=== PATIENT | male | born 1950 | race Caucasian/White ===

== ENCOUNTER → 2018-07-05 15:59 | Outpatient (CLI) | payer BC, SELFPAY ==
[2018-07-05 17:30] LABS: PSA,Total- Diagnostic 4.97 ng/mL (0.0-4.0)
== END ==
PROVIDERS: Family Provider Family Medicine; PCP Family Medicine; Referring Provider Nurse Practitioner Adult Health; Visit Provider Nurse Practitioner Adult Health
DX: R97.20 Elevated prostate specific antigen [PSA] (principal)
CPT/HCPCS: 36415; 84153

== ENCOUNTER → 2019-08-16 09:50 | Outpatient (CLI) | payer BC, SELFPAY ==
[2019-08-16 10:49] LABS: Anion Gap 5 (5-15); BUN 17 mg/dL (7-18); BUN/Creat Ratio 16.3 RATIO (10-20); Calcium,Total 9.1 mg/dL (8.5-10.1); Chloride 104 mmol/L (98-107); Cholesterol 224 mg/dL (200); Creatinine, Serum 1.04 mg/dL (0.70-1.30); EST Glomerular Filtration Rate 76 mL/min (>60); Est Glom Filt Rate - Afr Amer 92 mL/min (>60); Glucose 97 mg/dL (74-106); High Density Lipoprotein 39 mg/dL; PSA,Total - Annual Screen 4.46 ng/mL (0.00-4.00); Potassium 3.7 mmol/L (3.5-5.1); Sodium Level 138 mmol/L (136-145); Triglycerides 203 mg/dL; Very Low Density Lipoprotein 41 mg/dL (5-40)
== END ==
PROVIDERS: Family Provider Family Medicine; PCP Family Medicine; Referring Provider Nurse Practitioner Adult Health; Visit Provider Nurse Practitioner Adult Health
DX: I10 Essential (primary) hypertension (principal); Z12.5 Encounter for screening for malignant neoplasm of prostate
CPT/HCPCS: 36415; 80048; 80061; 84153; G0103

== ENCOUNTER → 2020-04-02 | Outpatient (CLI) | payer BC, MEDICARE, SELFPAY ==
[2016-08-08 09:44] VITALS: BMI 26.9
--- NOTE | 2020-04-02 07:51 | EKG12_ITS ---
Test Reason : PRE-OP Blood Pressure : / mmHG Vent. Rate : 086 BPM Atrial Rate : 086 BPM P-R Int : 150 ms QRS Dur : 100 ms QT Int : 360 ms P-R-T Axes : 067 061 044 degrees QTc Int : 430 ms Normal sinus rhythm Normal ECG Confirmed by DANIELLE ROGERS, NADER ([id number]), production editor MATT CLAIRE ([id number]) on 04/03/2020 10:16:54 AM Referred By: Talia Johnson Confirmed By:NADER SANTOS MD
[2020-04-02 08:02] LABS: Absolute Neutrophil Count 7.7 X10^3/uL (2.0-7.7); Basophil# 0.04 X10^3/uL; Basophil% 0.4 % (0-1); Eosinophil# 0.07 X10^3/uL; Eosinophils% 0.7 % (0-5); Hematocrit 45.8 % (40-54); Hemoglobin 14.8 g/dL (13.0-16.5); Mean Corp Hgb Conc 32.3 g/dL (32-36); Mean Corpuscular Hgb 28.5 pg (27.0-32.0); Mean Corpuscular Volume 88.2 fL (80-94); Mean Platelet Vol. 8.3 fl (6.2-12.0); Monocyte% 8.5 % (0-10); NRBC Flagged by Analyzer 0 % (0-5); Neutrophil # 7.72 X10^3/uL (2.7-7.7); Neutrophil % 73.1 % (47-70); Platelet Count 232 K/mm3 (150-450); RBC Distribution Width CV 12.8 % (11.6-14.6); RBC Distribution Width SD 41.5 fl (35.1-43.9); Red Blood Count 5.19 M/mm3 (4.6-6.2); White Blood Count 10.6 K/mm3 (4.4-11.0)
[2020-04-02 08:32] LABS: Anion Gap 5 (5-15); BUN 17 mg/dL (7-18); BUN/Creat Ratio 16.3 RATIO (10-20); Calcium,Total 8.5 mg/dL (8.5-10.1); Chloride 107 mmol/L (98-107); Creatinine, Serum 1.04 mg/dL (0.70-1.30); EST Glomerular Filtration Rate 76 mL/min (>60); Est Glom Filt Rate - Afr Amer 91 mL/min (>60); Glucose 140 mg/dL (74-106); Potassium 3.6 mmol/L (3.5-5.1); Sodium Level 138 mmol/L (136-145)
== END | disposition home or self-care (01) ==
LOC: LAB 07:40
PROVIDERS: PCP Family Medicine; Referring Provider Registered Nurse; Visit Provider Registered Nurse
DX: Z01.818 Encounter for other preprocedural examination (principal)
CPT/HCPCS: 36415; 80048; 85025; 93005

== ENCOUNTER → 2020-04-25 | Outpatient (CLI) | payer BC, MEDICARE, SELFPAY | END | disposition home or self-care (01) | LOC: MTDU 10:30 | PROVIDERS: PCP Family Medicine; Referring Provider Orthopaedic Surgery; Visit Provider Orthopaedic Surgery | DX: Z11.59 Encounter for screening for other viral diseases (principal) | CPT/HCPCS: 87635; 94799; U0003 ==

== ENCOUNTER 2020-12-03 11:51 | Outpatient (RCR) | payer MEDICARE, SELFPAY ==
[2016-08-08 09:44] VITALS: BMI 26.9
[2020-12-03] MEDS: COVID-19 VACC, MRNA(PFIZER)/PF 30 MCG/0.3 ML SYRINGE IM (08:40)
[2020-12-24] MEDS: COVID-19 VACC, MRNA(PFIZER)/PF 30 MCG/0.3 ML SYRINGE IM (08:28)
== END 2021-03-04 23:59 ==
LOC: IMMUN 11:51
PROVIDERS: PCP Family Medicine; Referring Provider Family Medicine; Visit Provider Family Medicine
DX: Z23 Encounter for immunization (principal)
CPT/HCPCS: 0001A; 0002A; 91300

== ENCOUNTER 2021-11-26 17:02 | Outpatient (CLI) | payer MEDICARE, OTHER, SELFPAY ==
--- NOTE | 2021-11-26 17:06 | RAD_ITS ---
STUDY: X-RAY CHEST REASON FOR EXAM: Male, 71 years old. Cough. TECHNIQUE: Frontal and lateral views of the chest on 3 images. COMPARISON: 08/08/2016. FINDINGS: The lungs are clear and expanded. There is no demonstrated pleural abnormality. Normal size heart. Normal mediastinum and margaret. Normal visualized pulmonary arteries. Normal visualized aortic arch and descending thoracic aorta. Normal visualized thoracic spine. Normal visualized ribs, clavicles, and shoulders. There is no demonstrated abnormality of the visualized soft tissue structures of the upper abdomen. RAD/Chest PA and Lateral IMPRESSION: No interval change. No active or acute cardiopulmonary disease. Electronically Signed: Elkin Grijalva MD at 10:00 EST ,
== END 2021-11-26 23:59 | disposition home or self-care (01) ==
LOC: MTRAD 17:05
PROVIDERS: PCP Family Medicine; Referring Provider Family Medicine; Visit Provider Family Medicine
DX: R05.9 Cough, unspecified (principal)
CPT/HCPCS: 71046

== ENCOUNTER → 2022-12-22 | Outpatient (CLI) | payer MEDICARE, OTHER, SELFPAY ==
[2022-12-22 17:01] LABS: AST(SGOT) 25 U/L (15-37); Alanine Aminotransfer ALT/SGPT 30 U/L (16-61); Anion Gap 8 (5-15); BUN 18 mg/dL (7-18); BUN/Creat Ratio 17.3 RATIO (10-20); Chloride 106 mmol/L (98-107); Cholesterol 120 mg/dL (200); Creatinine, Serum 1.04 mg/dL (0.70-1.30); EST Glomerular Filtration Rate 75 mL/min (>60); Est Glom Filt Rate - Afr Amer 91 mL/min (>60); Glucose 81 mg/dL (74-106); High Density Lipoprotein 36 mg/dL; PSA,Total - Annual Screen 5.61 ng/mL (0.00-4.00); Sodium Level 139 mmol/L (136-145); Triglycerides 153 mg/dL; Very Low Density Lipoprotein 31 mg/dL (5-40)
== END | disposition home or self-care (01) ==
LOC: MFPLAB 12:16
PROVIDERS: PCP Family Medicine; Referring Provider Family Medicine; Visit Provider Family Medicine
DX: Z00.00 Encounter for general adult medical examination without abnormal findings (principal); E78.5 Hyperlipidemia, unspecified; I10 Essential (primary) hypertension; Z12.5 Encounter for screening for malignant neoplasm of prostate
CPT/HCPCS: 36415; 80048; 80061; 84153; 84450; 84460; G0103

== ENCOUNTER → 2023-10-01 | Outpatient (CLI) | payer MEDICARE, OTHER, SELFPAY ==
[2023-10-01 13:23] LABS: AST(SGOT) 18 U/L (15-37); Alanine Aminotransfer ALT/SGPT 27 U/L (16-61); Anion Gap 3 (5-15); BUN 18 mg/dL (7-18); BUN/Creat Ratio 16.2 RATIO (10-20); Calcium,Total 9.3 mg/dL (8.5-10.1); Chloride 108 mmol/L (98-107); Cholesterol 128 mg/dL (200); Creatinine, Serum 1.11 mg/dL (0.70-1.30); EST Glomerular Filtration Rate 69 mL/min (>60); Est Glom Filt Rate - Afr Amer 84 mL/min (>60); Glucose 93 mg/dL (74-106); High Density Lipoprotein 44 mg/dL; Potassium 4.1 mmol/L (3.5-5.1); Sodium Level 139 mmol/L (136-145); Triglycerides 80 mg/dL; Very Low Density Lipoprotein 16 mg/dL (5-40)
== END | disposition home or self-care (01) ==
LOC: MFPLAB 10:22
PROVIDERS: PCP Family Medicine; Visit Provider Family Medicine
DX: I10 Essential (primary) hypertension (principal); E78.5 Hyperlipidemia, unspecified
CPT/HCPCS: 36415; 80048; 80061; 82043; 82570; 84450; 84460

== ENCOUNTER → 2023-11-04 | Outpatient (CLI) | payer MEDICARE, OTHER, SELFPAY ==
[2023-11-04 10:19] LABS: PSA,Total - Annual Screen 6.06 ng/mL (0.00-4.00)
[2023-11-05 13:07] LABS: PSA, Free 0.92 ng/mL; PSA, Free % 17.4 % (.)
== END | disposition home or self-care (01) ==
LOC: LAB 09:23
PROVIDERS: PCP Family Medicine; Referring Provider Urology; Visit Provider Urology
DX: N40.1 Benign prostatic hyperplasia with lower urinary tract symptoms (principal)
CPT/HCPCS: 36415; 84153; 84154; G0103

== ENCOUNTER → 2024-11-07 | Outpatient (CLI) | payer MEDICARE, OTHER, SELFPAY ==
[2024-11-08 04:46] LABS: AST(SGOT) 27 U/L (15-37); Alanine Aminotransfer ALT/SGPT 27 U/L (16-61); Anion Gap 8 (5-15); BUN 17 mg/dL (7-18); Chloride 104 mmol/L (98-107); Cholesterol 131 mg/dL (200); Creatinine, Serum 1.06 mg/dL (0.70-1.30); EST Glomerular Filtration Rate 73 mL/min (>60); Est Glom Filt Rate - Afr Amer 88 mL/min (>60); Glucose 83 mg/dL (74-106); High Density Lipoprotein 47 mg/dL; Potassium 3.7 mmol/L (3.5-5.1); Sodium Level 139 mmol/L (136-145); Triglycerides 49 mg/dL; Very Low Density Lipoprotein 10 mg/dL (5-40)
== END | disposition home or self-care (01) ==
LOC: MFPLAB 14:22
PROVIDERS: PCP Family Medicine; Referring Provider Family Medicine; Visit Provider Family Medicine
DX: E78.5 Hyperlipidemia, unspecified (principal); I10 Essential (primary) hypertension
CPT/HCPCS: 36415; 80048; 80061; 84443; 84450; 84460

== ENCOUNTER → 2025-05-15 | Outpatient (CLI) | payer MEDICARE, OTHER, SELFPAY ==
--- OUTSIDE RECORDS SUMMARY | 2025-05-15 10:27 | XMS RPT_ITS | CCD ---
Author Organization [facility] Inform ion Partnership [facility] Care Team Providers Care Senior Etl Developer Name Role Phone Janette Church Referring Unavailable Janette Church Attending Unavailable Janette Church Primary Care Unavailable Medications Current Medications Medication Drug Class(es) Dates Sig (Normalized) Sig (Original) doxazosin 1 mg oral tablet (2 sources) alpha-Adrenergic Manuel Start: 08-08-2016 take 1 mg by mouth at bedtime Doxazosin Active 1 MG PO AT BEDTIME August 08, 2016 12:00am sildenafil 20 mg oral tablet (2 sources) Phosphodiesterase 5 Inhibitor Start: 08-08-2016 take 20 mg by mouth every week Sildenafil (Pulm.Hypertensi on) Active 20 MG PO EVERY WEEK August 08, 2016 12:00am Problems Problem Classification Problem Date Documented Da te Episodic/Chronic Disorders of lipid metabolism (1 source) Hyperlipidemia, unspecified; Translations: [Hyperlipidemia, unspecified] Onset: 11-21-2024 Chronic Results Test Name Value Interpretation Reference Range Facility AST(SGOT)on 11-08-2024 AST [Catalytic activity/Vol] 27 U/L Normal 15-37 [facility] Comment on above: Performed By: #### L 501.4405, L500.2500, L501.4100, L500.4100, L501.9520 #### [facility] [address] [place], [address] Alanine Aminotransferas (SGP T)on 11-08-2024 ALT [Catalytic activity/Vol] 27 U/L Normal 16-61 [facility] Comment on above: Performed By: #### L 501.4405, L500.2500, L501.4100, L500.4100, L501.9520 #### [facility] [address] [place], [address] Basic Metabolic Profile (BMP )on 11-08-2024 BUN/CRE 16.0 RATIO Normal 10-20 [facility] Comment on above: Performed By: #### L 501.4405, L500.2500, L501.4100, L500.4100, L501.9520 #### [facility] [address] [place], [address] CA,Total 9.0 mg/dL Normal 8.5-10.1 [facility] Comment on above: Performed By: #### L 501.4405, L500.2500, L501.4100, L500.4100, L501.9520 #### [facility] [address] [place], [address] Chloride [Moles/Vol] 104 mmol/L Normal 98-[address] [facility] Comment on above: Performed By: #### L 501.4405, L500.2500, L501.4100, L500.4100, L501.9520 #### [facility] [address] [place], [address] CO2 [Moles/Vol] 27.0 mmol/L Normal 21.0-32.0 [facility] Comment on above: Performed By: #### L 501.4405, L500.2500, L501.4100, L500.4100, L501.9520 #### [facility] [address] [place], [address] Creatinine [Mass/Vol] 1.06 mg/dL Normal 0.70-1.30 [facility] Comment on above: Result Comment: The validity of the calculated GFR GFRAA in patients over 70 years has not been determined. Clinical correlation is essential. Performed By: #### L 501.4405, L500.2500, L501.4100, L500.4100, L501.9520 #### [facility] [address] [place], [address] EST GFR - AA 88 mL/min Normal >60 [facility] Comment on above: Result Comment: Afri can Russian GFR Calc Performed By: #### L 501.4405, L500.2500, L501.4100, L500.4100, L501.9520 #### [facility] [address] [place], [address] GAP 8 Normal 5-15 [facility] Comment on above: Performed By: #### L 501.4405, L500.2500, L501.4100, L500.4100, L501.9520 #### [facility] [address] [place], [address] GFR/1.73 sq M.predicted among non-blacks MDRD (S/P/Bld) [Vol rate/Area] 73 mL/min/{1.73_m2} Normal >60 [facility] Comment on above: Result Comment: Non- GFR Calc Performed By: #### L 501.4405, L500.2500, L501.4100, L500.4100, L501.9520 #### [facility] [address] [place], [address] Glucose [Mass/Vol] 83 mg/dL Normal 74-106 [facility] Comment on above: Performed By: #### L 501.4405, L500.2500, L501.4100, L500.4100, L501.9520 #### [facility] [address] [place], [address] Potassium [Moles/Vol] 3.7 mmol/L Normal 3.5-5.1 [facility] Comment on above: Performed By: #### L 501.4405, L500.2500, L501.4100, L500.4100, L501.9520 #### [facility] [address] [place], [address] Sodium [Moles/Vol] 139 mmol/L Normal 136-145 [facility] Comment on above: Performed By: #### L 501.4405, L500.2500, L501.4100, L500.4100, L501.9520 #### [facility] [address] [place], [address] Urea nitrogen [Mass/Vol] 17 mg/dL Normal 7-18 [facility] Comment on above: Performed By: #### L 501.4405, L500.2500, L501.4100, L500.4100, L501.9520 #### [facility] [address] [place], [address] Lipid Profileon 11-08-2024 Cholesterol [Mass/Vol] 131 mg/dL Normal [address] [facility] Comment on above: Result Comment: <200 mg/dL Desirable 200-240 mg/dL Borderline >240 mg/dL High Risk Performed By: #### L 501.4405, L500.2500, L501.4100, L500.4100, L501.9520 #### [facility] [address] [place], [address] Cholesterol in HDL [Mass/Vol] 47 mg/dL Normal [facility] Comment on above: Result Comment: The drugs N-Acetylcysteine and Metamizole may falsely depress this assay. Reference Range HDL <40 mg/dL Low HDL Cholesterol HDL >or= 60 mg/dL High HDL Cholesterol Performed By: #### L 501.4405, L500.2500, L501.4100, L500.4100, L501.9520 #### [facility] [address] [place], [address] Cholesterol in LDL [Mass/Vol] 74 mg/dL Normal 0-130 [facility] Comment on above: Performed By: #### L 501.4405, L500.2500, L501.4100, L500.4100, L501.9520 #### [facility] [address] [place], [address] Cholesterol in VLDL [Mass/Vol] 10 mg/dL Normal 5-40 [facility] Comment on above: Performed By: #### L 501.4405, L500.2500, L501.4100, L500.4100, L501.9520 #### [facility] [address] [place], [address] Triglyceride [Mass/Vol] 49 mg/dL Normal [facility] Comment on above: Result Comment: The drugs N-Acetylcysteine and Metamizole may falsely depress this assay. Serum Triglycerides Reference Interval Normal <150 mg/dL Borderline high 150 - 199 mg/dL High 200 - 499 mg/dL Very High > or = 500 mg/dL Performed By: #### L 501.4405, L500.2500, L501.4100, L500.4100, L501.9520 #### [facility] [address] [place], [address] Thyroid Stim Hormone (TSH)on 11-08-2024 TSH 2.990 uIU/mL Normal 0.358-3.740 [facility] Comment on above: Performed By: #### L 501.4405, L500.2500, L501.4100, L500.4100, L501.9520 #### [facility] [address] [place], [address] No Panel InformationOrdered By: Benjamin Colon on 11-04-2023 Percent Free Prostate Specific Ag 0.92 ng/mL N/A [facility] Comment on above: [place] ECLIA methodol ogy. Prostate Specific Ag, Ultra-Sensitv 5.280 ng/mL 0.000-4.000 [facility] Comment on above: [place] ECLIA methodol ogy.According to the [place] [employer], Serum PSAshould decrease and remain at undetectable levels afterradical prostatectomy. The AUA defines biochemicalrecurrence as an initial PSA value 0.200 ng/mL or greaterfollowed by a subsequent confirmatory PSA value 0.200 ng/mLor greater. Values obtained with different assay methods orkits cannot be used interchangeably. Results cannot beinterpreted as absolute evidence of the presence or absenceof malignant disease. Prostate Specific Antigen Screen 6.06 ng/mL 0.00-4.00 [facility] Comment on above: This test was perfor med using the TPSA assay method for theMintigo chemistry system. Values obtained with differentassay methods cannot be used interchangably.When changing PSA assays in the course of monitoring apatient, additional sequential testing should be carriedout to confirm baseline values. Serum or plasma free prostat e specific antigen/total prostate specific antigen ratioOrdered By: Benjamin Colon on 11-04-2023 Free PSA/Total PSA [Mass fraction] 17.4 % . [facility] Comment on above: The table below list s the probability of prostate cancer formen with non-suspicious BETTE results and total PSA between4 and 10 ng/mL, by patient age (Lindsay et al, NEEMA 1998,279:1542). % Free PSA 50-64 yr 65-75 yr 0.00-10.00% 56% 55% 10.01-15.00% 24% 35% 15.01-20.00% 17% 23% 20.01-25.00% 10% 20% >25.00% 5% 9%Please note: Lindsay et al did not make specific recommendations regarding the use of percent free PSA for any other population of men.Performed at: [facility] [id number] Director: Jimmy Dinero PhD, Phone: [phone] Basophil percentageOrdered B y: Janette Church on 10-01-2023 Chloride [Moles/Vol] 108 mmol/L 98-[address] [facility] Cholesterol [Mass/Vol] 128 mg/dL <[address] [facility] Comment on above: <200 mg/dL Desirable 200-240 mg/dL Borderline >240 mg/dL High Risk Glucose [Mass/Vol] 93 mg/dL 74-106 [facility] Potassium [Moles/Vol] 4.1 mmol/L 3.5-5.1 [facility] Sodium [Moles/Vol] 139 mmol/L 136-145 [facility] Triglyceride [Mass/Vol] 80 mg/dL <199 [facility] Comment on above: The drugs N-Acetylcy steine and Metamizole may falsely depress this assay.Serum Triglycerides Reference Interval Normal <150 mg/dL Borderline high 150 - 199 mg/dL High 200 - 499 mg/dL Very High > or = 500 mg/dL Laboratory - Chemistry and C hemistry - challengeOrdered By: Janette Church on 10-01-2023 ALT [Catalytic activity/Vol] 27 U/L 16-61 [facility] CO2 [Moles/Vol] 28.0 mmol/L 21.0-32.0 [facility] Urea nitrogen/Creatinine [Mass ratio] 16.2 mg/mg 10-20 [facility] No Panel InformationOrdered By: Janette Church on 10-01-2023 Estimated GFR (MDRD) Amer 84 mL/min >60 [facility] Comment on above: GFR Calc Estimated GFR (MDRD) Non-Af Amer 69 mL/min >60 [facility] Comment on above: Non- GFR Calc Urine Microalbumin/Creatinin e Ratio 15.0 mg/g CRE <30 [facility] Serum or plasma calcium maximilian urement (mass/volume)Ordered By: Janette Church on 10-01-2023 Calcium [Mass/Vol] 9.3 mg/dL 8.5-10.1 [facility] Serum or plasma cholesterol in HDL measurement (mass/volume)Ordered By: Janette Church on 10-01-2023 Cholesterol in HDL [Mass/Vol] 44 mg/dL >40 [facility] Comment on above: The drugs N-Acetylcy steine and Metamizole may falsely depress this assay. Reference Range HDL <40 mg/dL Low HDL Cholesterol HDL >or= 60 mg/dL High HDL Cholesterol Serum or plasma cholesterol in VLDL measurement (mass/volume)Ordered By: Janette Church on 10-01-2023 Cholesterol in VLDL [Mass/Vol] 16 mg/dL 5-40 [facility] Serum or plasma creatinine m easurement (mass/volume)Ordered By: Janette Church on 10-01-2023 Creatinine [Mass/Vol] 1.11 mg/dL 0.70-1.30 [facility] Comment on above: The validity of the calculated GFR & GFRAA in patients over 70 years has not been determined. Clinical correlation is essential. Serum or plasma low density lipoprotein (LDL) cholesterol measurement (mass/volume)Ordered By: Janette Church on 10-01-2023 Cholesterol in LDL [Mass/Vol] 68 mg/dL 0-130 [facility] Serum or plasma urea nitroge n measurement (mass/volume)Ordered By: Janette Church on 10-01-2023 Urea nitrogen [Mass/Vol] 18 mg/dL 7-18 [facility] Thin prep Papanicolaou smear with manual screeningOrdered By: Janette Church on 10-01-2023 Thin prep Papanicolaou smear with manual screening 18 U/L 15-37 [facility] Thin prep Papanicolaou smear with manual screening 3 5-15 [facility] Thin prep Papanicolaou smear with manual screening 44.0 mg/L NO RANGE EST. [facility] Urine creatinine measurement (mass/volume)Ordered By: Janette Church on 10-01-2023 Creatinine (U) [Mass/Vol] 294.00 mg/dL NO RANGE EST. [facility] CNOVon 11-17-2021 CNOV Office Visit (UCWSTR ) -------- ELEAZAR ROSALES ([id number]) 1950 M Date Time Provider Department 11/17/21 9:30 AM RAE POSADAS [facility] During your visit today, we recorded the following information about you: Temperature Pulse Respiration Blood pressure 96.3 degrees 88/minute 18/minute 130/90 Weight 93.4 kg Rae Posadas APRN.CNP 11/17/2021 9:35 AM Signed ASSESSMENT/PLAN: 1. Acute sinusitis, recurrence not specified, unspecified location - ICD9: 461.9, ICD10: J01.90 (primary diagnosis) - Will begin treatment with Augmentin 875 mg PO BID for 7 days - Supportive care with plenty of fluids, rest, and analgesia prn. - AMOXICILLIN 875 MG-POTASSIUM CLAVULANATE 125 MG TABLET - also recommend over the counter Flonase and cepacol lozenges. 2. Post-nasal drainage - ICD9: 473.9, ICD10: R09.82 - Follow-up with your PCP in 3-5 days if symptoms have not improved or sooner if symptoms worsen - Discussed red flags and need for immediate medical evaluation if any occur. - Discussed supportive care treatment with fluids, rest and analgesia. - Discussed expected course of illness Rae Posadas APRN.MAURY Adult Sinusitis Patient Education What is Sinusitis? Sinusitis [umdw-uqz-skkq-tis] is inflammation of the sinuses or swelling of the lining of the sinus cavity or nose. During an infection the sinuses become blocked with fluid causing swelling of the lining of the sinuses. Symptoms: (viral and bacterial infections) Stuffy nose Runny nose Postnasal drip Fever Toothache Headache Tiredness Cough Sore throat Face and head pressure and or pain Common causes: 98% of sinus infections are viral caused by viruses. Risk Factors of Sinusitis Include: Allergies, air pollution, indoor humidity and outdoor temperature changes, andstructural changes in the nose may contribute to sinus pain, pressure and congestion. When to get help? Temperature greater than 100.4 ?F Symptoms lasting more than 10 days or worsening symptoms greater than 7-10 days. If you do not improve or worsen after a course of antibiotics, you should be re-examined. Diagnosis and Treatment: Your healthcare provider will ask a number of questions about your symptoms and how long they have occurred. If symptoms of sinusitis persist greater than 10 days, it is possible you have a bacterial sinus infection and an antibiotic is prescribed. If it is viral, antibiotics will not help. You may be instructed to take zmtx-oig-vcquhuf medications for symptoms. including fever reducers acetaminophen or ibuprofen, nasal saline spray, cough and cold preparations and decongestants as prescribed by the physician, nurse practitioner or physician rehabilitation assistant. Self-Care and Prevention: Rest Fluids for hydration Good hand washing Humidifier Avoid smoking and exposure to second hand smoke Avoid sick contacts Rae Posadas APRN.MAURY 11/17/2021 9:46 AM Signed Subjective HPI Eleazar Rosales is a 71 year old male who presents with 3 weeks of sore throat, sinus congestion and cough. He has had two COVID tests which were both negative. He has not taken any medication for this problem. He denies fever, chills, body aches. He notes a change in his voice over the past few days and frequent throat clearing due to congestion. Review of Systems Constitutional: Negative for chills and fever. HENT: Positive for congestion and sore throat. Negative for ear pain. Respiratory: Positive for cough. Negative for shortness of breath. Cardiovascular: Negative for chest pain. Musculoskeletal: Negative for myalgias. BP 130/90 Pulse 88 Temp (!) 35.7 ?C (96.3 ?F) Resp 18 Wt 93.4 kg (205 lb 12.8 oz) SpO2 96% PAST MEDICAL HISTORY Diagnosis Date - Hypertrophy of prostate without urinary obstruction and other lower urinary tract symptoms (LUTS) - Inguinal hernia without mention of obstruction or gangrene, unilateral or unspecified, (not specified as recurrent) left PAST SURGICAL HISTORY Procedure Laterality Date - LAPAROSCOPY SURG RPR INITIAL INGUINAL HERNIA [facility] - PAST SURGICAL HISTORY OF [facility] ALLERGIES Patient has no known allergies. MEDICATIONS amLODIPine (NORVASC) 5 mg tablet Take 5 mg by mouth daily at bedtime. atorvastatin (LIPITOR) 20 mg tablet Take 20 mg by mouth daily at bedtime. amoxicillin-clavulanic acid (AUGMENTIN) 875-125 mg per tablet Take 1 tablet by mouth twice daily for 7 days. gabapentin(NEURONTIN 300 MG CAP) Take one(1) capsule three(3) times daily. gabapentin(NEURONTIN 100 MG CAP) take two (2) capsules BID for one week, then start on the 300mg capsules as directed gabapentin(NEURONTIN 100 MG CAP) Take one (1)capsule TID for one(1)week, then take two(2) capsules TID beginning the second week. tamsulosin hcl(FLOMAX 0.4 MG 24 HR CAP) Take one(1) tablet at bedtime. FAMILY HISTORY Problem Relatio (more content not included)... Normal [facility] Encounters Encounter Date Encounter Type Care Provider Facility Start: 11-07-2024 End: 11-07-2024 ambulatory Janette Church Facility:[facility] Start: 11-04-2023 End: 11-04-2023 ambulatory [facility] Work Phone: Start: 11-04-2023 End: 11-04-2023 Patient encounter procedure [facility] Work Phone: Start: 10-01-2023 End: 10-01-2023 ambulatory [facility] Work Phone: Start: 10-01-2023 End: 10-01-2023 Patient encounter procedure [facility] Immunizations Immunization Date Immunization Notes Care Provider Fa cility 12-24-2020 Covid (Pfizer) [facility] 12-03-2020 Covid (Pfizer) [facility] Payers Date Payer Category Payer Medicare [id number] 2024 Self-pay [id number] Unknown [id number] Unknown PALAK [id number] Unknown [id number] Social History Date Type Detail Facility Start: 08-08-2016 Tobacco smoking stat [facility] Unknown if ever smoked [facility] Start: 1950 Sex Assigned At Male [facility] Progress note 11-17-2021 Note Date & Type Note Facility 11-17-2021 Note HNO ID: [id number] Author: Rae Posadas APRN.SSN/SSBN ASSISTANT NAVIGATOR Service: ? Author Type: Nurse Practitioner Type: Progress Notes Filed: 11/17/2021 9:46 AM Note Text: Subjective HPI Eleazar Rosales is a 71 year old male who presents with 3 weeks of sore throat, sinus congestion and cough. He has had two COVID tests which were both negative. He has not taken any medication for this problem. He denies fever, chills, body aches. He notes a change in his voice over the past few days and frequent throat clearing due to congestion. Review of Systems Constitutional: Negative for chills and fever. HENT: Positive for congestion and sore throat. Negative for ear pain. Respiratory: Positive for cough. Negative for shortness of breath. Cardiovascular: Negative for chest pain. Musculoskeletal: Negative for myalgias. BP 130/90 Pulse 88 Temp (!) 35.7 ?C (96.3 ?F) Resp 18 Wt 93.4 kg (205 lb 12.8 oz) SpO2 96% PAST MEDICAL HISTORY Diagnosis Date - Hypertrophy of prostate without urinary obstruction and other lower urinary tract symptoms (LUTS) - Inguinal hernia without mention of obstruction or gangrene, unilateral or unspecified, (not specified as recurrent) left PAST SURGICAL HISTORY Procedure Laterality Date - LAPAROSCOPY SURG RPR INITIAL INGUINAL HERNIA [facility] - PAST SURGICAL HISTORY OF [facility] ALLERGIES Patient has no known allergies. MEDICATIONS amLODIPine (NORVASC) 5 mg tablet Take 5 mg by mouth daily at bedtime. atorvastatin (LIPITOR) 20 mg tablet Take 20 mg by mouth daily at bedtime. amoxicillin-clavulanic acid (AUGMENTIN) 875-125 mg per tablet Take 1 tablet by mouth twice daily for 7 days. gabapentin(NEURONTIN 300 MG CAP) Take one(1) capsule three(3) times daily. gabapentin(NEURONTIN 100 MG CAP) take two (2) capsules BID for one week, then start on the 300mg capsules as directed gabapentin(NEURONTIN 100 MG CAP) Take one (1)capsule TID for one(1)week, then take two(2) capsules TID beginning the second week. tamsulosin hcl(FLOMAX 0.4 MG 24 HR CAP) Take one(1) tablet at bedtime. FAMILY HISTORY Problem Relation Age of Onset - Arthritis Maternal Grandmother - Arthritis Maternal Grandfather - Alzheimer's Disease Maternal Aunt - Alzheimer's Disease Maternal Aunt Social History Tobacco Use - Smoking status: Never Smoker - Smokeless tobacco: Never Used Substance Use Topics - Alcohol use: Yes Comment: rare - Drug use: No Objective Physical Exam Vitals and nursing note reviewed. HENT: Right Ear: Tympanic membrane, ear canal and external ear normal. Left Ear: Tympanic membrane, ear canal and external ear normal. Nose: Nasal tenderness and congestion present. Mouth/Throat: Mouth: Mucous membranes are moist. Pharynx: Oropharynx is clear. Uvula midline. No oropharyngeal exudate or posterior oropharyngeal erythema. Cardiovascular: Rate and Rhythm: Normal rate and regular rhythm. Heart sounds: Normal heart sounds. Pulmonary: Effort: Pulmonary effort is normal. No respiratory distress. Breath sounds: Normal breath sounds. No wheezing or rales. Musculoskeletal: Cervical back: Neck supple. Lymphadenopathy: Cervical: No cervical adenopathy. Skin: General: Skin is warm and dry. Findings: No erythema or rash. Neurological: Mental Status: He is alert. ASSESSMENT/PLAN: 1. Acute sinusitis, recurrence not specified, unspecified location - ICD9: 461.9, ICD10: J01.90 (primary diagnosis) - Will begin treatment with Augmentin 875 mg PO BID for 7 days - Supportive care with plenty of fluids, rest, and analgesia prn. - AMOXICILLIN 875 MG-POTASSIUM CLAVULANATE 125 MG TABLET - also recommend over the counter Flonase and cepacol lozenges. 2. Post-nasal drainage - ICD9: 473.9, ICD10: R09.82 - Follow-up with your PCP in 3-5 days if symptoms have not improved or sooner if symptoms worsen - Discussed red flags and need for immediate medical evaluation if any occur. - Discussed supportive care treatment with fluids, rest and analgesia. - Discussed expected course of illness Medical Decision Making: Problems: Moderate: New problem with uncertain prognosis Risk: Low: Low risk from testing/treatment Moderate: Drug management Medical Decision Making Level: 4 - Moderate Rae Posadas APRN.MAURY [facility] Evaluation note Note Date & Type Note Facility Evaluation note No assessment information availa ble [facility] Work Phone: Summary Purpose Family History No Family History Records FoundNo Family History Records Found Advance Directives No Advanced Directives Records FoundNo Advanced Directives Records Found Chief Complaint and Reason for Visit Chief Complaint PSA Additional Source Comments (unrecognized sect ion and content) No Status Records FoundNo Status Records Found INFORMATION SOURCE (unrecogn ized section and content) DATE CREATED AUTHOR 12/18/2021 [facility] DATE CREATED AUTHOR AUTHOR'S MATTY KELLY 11/23/2024 [facility] Care Teams (unrecognized sec tion and content) Team Status: Active Member Role Status Dates Dr. Janette Church MD Family Provider Active Dr. Janette Church MD Primary Care Provider Active Team Status: Inactive Member Role Status Dates Dr. Janette Church MD Primary Care Provider, Attendin g Provider Active Team Status: Inactive Member Role Status Dates Dr. Janette Church MD Primary Care Provider Active Dr. Benjamin Colon MD Attending Provider, Referr ing Provider Active Goals (unrecognized section and content) Goals may be documented in a n alternate sectionGoals may be documented in an alternate section FOR RECORDS PERTAINING TO PATIENTS WHO ARE OR HAVE BEEN ENROLLED IN A CHEMICAL DEPENDENCY/SUBSTANCEABUSE PROGRAM, SOME INFORMATION MAY BE OMITTED. This clinical summary was aggregated from multiple sources. Caution should be exercised in using it in the provision of clinical care. This summary normalizes information from multiple sources, and as a consequence, information in this document may materially change the coding, format and clinical context of patient data. In addition, data may be omitted in some cases. CLINICAL DECISIONS SHOULD BE BASED ON THE PRIMARY CLINICAL RECORDS. [facility] [employer] provides no warranty or guarantee of the accuracy or completeness of information in this document.
[2025-05-15 11:01] LABS: PSA,Total - Annual Screen 5.56 ng/mL (0.02-4.00)
== END | disposition home or self-care (01) ==
LOC: MFPLAB 08:58
DX: Z12.5 Encounter for screening for malignant neoplasm of prostate (principal)
CPT/HCPCS: 36415; 84153; G0103

== ENCOUNTER → 2025-07-31 | Outpatient (CLI) | payer MEDICARE, OTHER, SELFPAY ==
[2025-07-31 15:01] LABS: Hematocrit 41.7 % (40-54); Hemoglobin 14.1 g/dL (13.0-16.5); Mean Corp Hgb Conc 33.8 g/dL (32-36); Mean Corpuscular Volume 87.4 fL (80-94); Mean Platelet Vol. 8.3 fl (6.2-12.0); Platelet Count 269 K/mm3 (150-450); RBC Distribution Width CV 12.8 % (11.6-14.6); RBC Distribution Width SD 40.8 fl (35.1-43.9); Red Blood Count 4.77 M/mm3 (4.6-6.2); White Blood Count 10.1 K/mm3 (4.4-11.0)
[2025-07-31 15:30] LABS: Anion Gap 9 (5-15); BUN 18 mg/dL (4-19); BUN/Creat Ratio 16.6 RATIO (10-20); Calcium,Total 9.1 mg/dL (7.6-11.0); Carbon Dioxide 25.5 mmol/L (21.0-32.0); Chloride 105 mmol/L (98-108); Glucose 92 mg/dL (70-99); Potassium 4.1 mmol/L (3.3-5.1)
--- OUTSIDE RECORDS SUMMARY | 2025-07-31 18:57 | XMS RPT_ITS | CCD ---
Author Organization [facility]iniSyn[facility] Care Team Providers Care Duco Polisher Name Role Phone Janette Church Primary Care Unavailable Janette Church Attending Unavailable Janette Church Referring Unavailable Roseanneorrow AUTO CRANE DRIVERCharles Primary Care Unavailable McMorrow AUTO CRANE DRIVER, Charles Attending Unavailable McMorrow AUTO CRANE DRIVER, Charles Referring [facility]available [facility] Charles Primary Care Provider [phone] McMorrow AUTO CRANE DRIVER-C, Charles Attending Provider [phone] McMorrow AUTO CRANE DRIVER-C, Charles Referring Provider [phone] Medications Current Medications Medication Drug Class(es) Dates Sig (Normalized) Sig (Original) doxazosin 1 mg oral tablet (3 sources) alpha-Adrenergic Manuel Start: 08-08-2016 take 1 tablet by mouth at bedtime Doxazosin 1 MG tablet Active 1 mg PO AT BEDTIME August 08, 2016 1:00am sildenafil 20 mg oral tablet (3 sources) Phosphodiesterase 5 Inhibitor Start: 08-08-2016 take 1 tablet by mouth every week Sildenafil (Pulm.Hypertensi on) 20 MG tablet Active 20 mg PO EVERY WEEK August 08, 2016 1:00am Problems Problem Classification Problem Date Documented Da te Episodic/Chronic Disorders of lipid metabolism (1 source) Hyperlipidemia, unspecified; Translations: [Hyperlipidemia, unspecified] Onset: 11-21-2024 Chronic Other screening for suspected conditions (not mental disorders or infectious disease) (1 source) Encounter for screening for malignant neoplasm of prostate; Translations: [Encounter for screening for malignant neoplasm of prostate] Onset: 05-21-2025 Episodic Results Test Name Value Interpretation Reference Range Facility PSA,Total - Annual Screenon 05-15-2025 PSA,TOT SCREEN 5.56 ng/mL High 0.02-4.00 [facility] Comment on above: Order Comment: Order Date: 05/15/25 Order Info: [id number] - PSA Comments: screening for prostate cancer Result Comment: This test was performed using the [employer] tPSA method. Measured values of a patient??sample can vary depending on the testing procedure used. PSA values determined on patient samples by different testing procedures cannot be used interchangeably. If there is a change in PSA assays while monitoring therapy, sequential testing should be performed to confirm baseline values. Performed By: #### L 501.9910 #### [facility] [address] [place], [address] AST(SGOT)on 11-08-2024 AST [Catalytic activity/Vol] 27 U/L Normal 15-37 [facility] Comment on above: Performed By: #### L 501.4405, L500.2500, L501.4100, L500.4100, L501.9520 #### [facility] [address] [place], [address] Alanine Aminotransferas (SGP T)on 11-08-2024 ALT [Catalytic activity/Vol] 27 U/L Normal 16-61 [facility] Comment on above: Performed By: #### L 501.4405, L500.2500, L501.4100, L500.4100, L501.9520 #### [facility] [address] [place], [address] Basic Metabolic Profile (BMP )on 11-08-2024 BUN/CRE 16.0 RATIO Normal 10-20 [facility] Comment on above: Performed By: #### L 501.4405, L500.2500, L501.4100, L500.4100, L501.9520 #### [facility] [address] [place], [address] CA,Total 9.0 mg/dL Normal 8.5-10.1 [facility] Comment on above: Performed By: #### L 501.4405, L500.2500, L501.4100, L500.4100, L501.9520 #### [facility] [address] [place], [address] Chloride [Moles/Vol] 104 mmol/L Normal 98-107 [facility] Comment on above: Performed By: #### L 501.4405, L500.2500, L501.4100, L500.4100, L501.9520 #### [facility] [address] [place], [address] CO2 [Moles/Vol] 27.0 mmol/L Normal 21.0-32.0 [facility] Comment on above: Performed By: #### L 501.4405, L500.2500, L501.4100, L500.4100, L501.9520 #### [facility] [address] [place], [address] Creatinine [Mass/Vol] 1.06 mg/dL Normal 0.70-1.30 [facility] Comment on above: Result Comment: The validity of the calculated GFR GFRAA in patients over 70 years has not been determined. Clinical correlation is essential. Performed By: #### L 501.4405, L500.2500, L501.4100, L500.4100, L501.9520 #### [facility] [address] [place], [address] EST GFR - AA 88 mL/min Normal >60 [facility] Comment on above: Result Comment: Afri can Citizen Of [place] GFR Calc Performed By: #### L 501.4405, L500.2500, L501.4100, L500.4100, L501.9520 #### [facility] [address] [place], [address] GAP 8 Normal 5-15 [facility] Comment on above: Performed By: #### L 501.4405, L500.2500, L501.4100, L500.4100, L501.9520 #### [facility] [address] [place], [address] GFR/1.73 sq M.predicted among non-blacks MDRD (S/P/Bld) [Vol rate/Area] 73 mL/min/{1.73_m2} Normal >60 [facility] Comment on above: Result Comment: Non- GFR Calc Performed By: #### L 501.4405, L500.2500, L501.4100, L500.4100, L501.9520 #### [facility] [address] [place], [address] Glucose [Mass/Vol] 83 mg/dL Normal 74-106 [facility] Comment on above: Performed By: #### L 501.4405, L500.2500, L501.4100, L500.4100, L501.9520 #### [facility] [address] [place], [address] Potassium [Moles/Vol] 3.7 mmol/L Normal 3.5-5.1 [facility] Comment on above: Performed By: #### L 501.4405, L500.2500, L501.4100, L500.4100, L501.9520 #### [facility] [address] [place], [address] Sodium [Moles/Vol] 139 mmol/L Normal 136-145 [facility] Comment on above: Performed By: #### L 501.4405, L500.2500, L501.4100, L500.4100, L501.9520 #### [facility] [address] [place], [address] Urea nitrogen [Mass/Vol] 17 mg/dL Normal 7-18 [facility] Comment on above: Performed By: #### L 501.4405, L500.2500, L501.4100, L500.4100, L501.9520 #### [facility] [address] [place], [address] Lipid Profileon 11-08-2024 Cholesterol [Mass/Vol] 131 mg/dL Normal 200 [facility] Comment on above: Result Comment: <200 mg/dL Desirable 200-240 mg/dL Borderline >240 mg/dL High Risk Performed By: #### L 501.4405, L500.2500, L501.4100, L500.4100, L501.9520 #### [facility] [address] [place], [address] Cholesterol in HDL [Mass/Vol] 47 mg/dL Normal [facility] Comment on above: Result Comment: The drugs N-Acetylcysteine and Metamizole may falsely depress this assay. Reference Range HDL <40 mg/dL Low HDL Cholesterol HDL >or= 60 mg/dL High HDL Cholesterol Performed By: #### L 501.4405, L500.2500, L501.4100, L500.4100, L501.9520 #### [facility] [address] [place], [address] Cholesterol in LDL [Mass/Vol] 74 mg/dL Normal 0-130 [facility] Comment on above: Performed By: #### L 501.4405, L500.2500, L501.4100, L500.4100, L501.9520 #### [facility] [address] [place], [address] Cholesterol in VLDL [Mass/Vol] 10 mg/dL Normal 5-40 [facility] Comment on above: Performed By: #### L 501.4405, L500.2500, L501.4100, L500.4100, L501.9520 #### [facility] [address] [place], [address] Triglyceride [Mass/Vol] 49 mg/dL Normal [facility] Comment on above: Result Comment: The drugs N-Acetylcysteine and Metamizole may falsely depress this assay. Serum Triglycerides Reference Interval Normal <150 mg/dL Borderline high 150 - 199 mg/dL High 200 - 499 mg/dL Very High > or = 500 mg/dL Performed By: #### L 501.4405, L500.2500, L501.4100, L500.4100, L501.9520 #### [facility] [address] [place], [address] Thyroid Stim Hormone (TSH)on 11-08-2024 TSH 2.990 uIU/mL Normal 0.358-3.740 [facility] Comment on above: Performed By: #### L 501.4405, L500.2500, L501.4100, L500.4100, L501.9520 #### [facility] [address] [place], [address] No Panel InformationOrdered By: Benjamin Colon on 11-04-2023 Percent Free Prostate Specific Ag 0.92 ng/mL N/A [facility] Comment on above: [employer] ECLIA methodol ogy. Prostate Specific Ag, Ultra-Sensitv 5.280 ng/mL 0.000-4.000 [facility] Comment on above: [employer] ECLIA methodol ogy.According to the [place] [employer], Serum PSAshould decrease and remain [...] Prostate Specific Antigen Screen 6.06 ng/mL 0.00-4.00 [facility] Comment on above: This test was perfor med using the TPSA assay method for the[facility] chemistry system. Values obtained with differentassay methods cannot be used interchangably.When changing PSA assays in the course of monitoring apatient, additional sequential testing should be carriedout to confirm baseline values. Serum or plasma free prostat e specific antigen/total prostate specific antigen ratioOrdered By: Benjamin Colon on 11-04-2023 Free PSA/Total PSA [Mass fraction] 17.4 % . [facility] Comment on above: The table below [...] for any other population of men.Performed at: [facility] [id number] Director: Jimmy Dinero PhD, Phone: [phone] Basophil percentageOrdered B y: Janette Church on 10-01-2023 Chloride [Moles/Vol] 108 mmol/L 98-107 [facility] Cholesterol [Mass/Vol] 128 mg/dL <200 [facility] Comment on above: <200 mg/dL Desirable 200-240 mg/dL Borderline >240 mg/dL High Risk Glucose [Mass/Vol] 93 mg/dL 74-106 [facility] Potassium [Moles/Vol] 4.1 mmol/L 3.5-5.1 [facility] Sodium [Moles/Vol] 139 mmol/L 136-145 [facility] Triglyceride [Mass/Vol] 80 mg/dL <199 [facility] Comment on above: The drugs N-Acetylcy steine and Metamizole may falsely depress this assay.Serum Triglycerides Reference Interval Normal <150 mg/dL Borderline high 150 - 199 mg/dL High 200 - 499 mg/dL Very High > or = 500 mg/dL Laboratory - Chemistry and C hemistry - challengeOrdered By: Janette Church on 10-01-2023 ALT [Catalytic activity/Vol] 27 U/L 16-61 [facility] CO2 [Moles/Vol] 28.0 mmol/L 21.0-32.0 [facility] Urea nitrogen/Creatinine [Mass ratio] 16.2 mg/mg 10-20 [facility] No Panel InformationOrdered By: Janette Church on 10-01-2023 Estimated GFR (MDRD) Amer 84 mL/min >60 [facility] Comment on above: GFR Calc Estimated GFR (MDRD) Non-Af Amer 69 mL/min >60 [facility] Comment on above: Non- GFR Calc Urine Microalbumin/Creatinin e Ratio 15.0 mg/g CRE <30 [facility] Serum or plasma calcium maximilian urement (mass/volume)Ordered By: Janette Church on 10-01-2023 Calcium [Mass/Vol] 9.3 mg/dL 8.5-10.1 [facility] Serum or plasma cholesterol in HDL measurement (mass/volume)Ordered By: Janette Church on 10-01-2023 Cholesterol in HDL [Mass/Vol] 44 mg/dL >40 [facility] Comment on above: The drugs N-Acetylcy steine and Metamizole may falsely depress this assay. Reference Range HDL <40 mg/dL Low HDL Cholesterol HDL >or= 60 mg/dL High HDL Cholesterol Serum or plasma cholesterol in VLDL measurement (mass/volume)Ordered By: Janette Church on 10-01-2023 Cholesterol in VLDL [Mass/Vol] 16 mg/dL 5-40 [facility] Serum or plasma creatinine m easurement (mass/volume)Ordered By: Janette Church on 10-01-2023 Creatinine [Mass/Vol] 1.11 mg/dL 0.70-1.30 [facility] Comment on above: The validity of the calculated GFR & GFRAA in patients over 70 years has not been determined. Clinical correlation is essential. Serum or plasma low density lipoprotein (LDL) cholesterol measurement (mass/volume)Ordered By: Janette Church on 10-01-2023 Cholesterol in LDL [Mass/Vol] 68 mg/dL 0-130 [facility] Serum or plasma urea nitroge n measurement (mass/volume)Ordered By: Janette Church on 10-01-2023 Urea nitrogen [Mass/Vol] 18 mg/dL 7-18 [facility] Thin prep Papanicolaou smear with manual screeningOrdered By: Janette Church on 10-01-2023 Thin prep Papanicolaou smear with manual screening 18 U/L 15-37 [facility] Thin prep Papanicolaou smear with manual screening 3 5-15 [facility] Thin prep Papanicolaou smear with manual screening 44.0 mg/L NO RANGE EST. [facility] Urine creatinine measurement (mass/volume)Ordered By: Janette Church on 10-01-2023 Creatinine (U) [Mass/Vol] 294.00 mg/dL NO RANGE ESTReshma [facility] Betty 11-17-2021 CNOV Office Visit (UCWSTR ) -------- CONNIEELEAZAR ([id number]) 1950 M Date Time Provider Department 11/17/21 9:30 AM RAE POSADAS [facility] During your visit today, we recorded the [...] Discussed expected course of illness Rae Posadas APRN.CNP Adult Sinusitis Patient Education What is Sinusitis? Sinusitis [pvjf-kfk-gygg-tis] is inflammation of the sinuses or swelling [...] help. You may be instructed to take fvvu-llu-gsldiet medications for symptoms. including fever reducers acetaminophen or ibuprofen, nasal saline spray, cough and cold preparations and decongestants as prescribed by the physician, nurse practitioner or physician higher level teaching assistant. Self-Care and Prevention: Rest Fluids for hydration Good hand washing Humidifier Avoid smoking and exposure to second hand smoke Avoid sick contacts Rae Posadas APRN.HOME INSPECTOR 11/17/2021 9:46 AM Signed Subjective HPI Eleazar [...] Problem Relatio (more content not included)... Normal [facility] Encounters Encounter Date Encounter Type Care Provider Facility Start: 05-15-2025 End: 05-15-2025 ambulatory Charles Mayen AUTO CRANE DRIVER-C Work Phone: -Laboratory [facility] Start: 05-15-2025 End: 05-15-2025 Patient encounter procedure Charles Mayen AUTO CRANE DRIVER-C -Laboratory [facility] Start: 05-15-2025 End: 05-15-2025 ambulatory Charles Tiarra MARLY Facility:[facility] Start: 11-07-2024 End: 11-07-2024 ambulatory Janette Church Facility:[facility] Start: 11-04-2023 End: 11-04-2023 ambulatory [facility] Work Phone: Start: 11-04-2023 End: 11-04-2023 Patient encounter procedure [facility]-Laboratory Work Phone: Start: 10-01-2023 End: 10-01-2023 ambulatory [facility] Work Phone: Start: 10-01-2023 End: 10-01-2023 Patient encounter procedure [facility]-Laboratory, [facility] Procedures Date Procedure Procedure Detail Performing Clinician Start: 05-15-2025 Prostate specific an oscar Mayen AUTO CRANE DRIVER-C Work Phone: Comment on above: This test was perfor med using the [facility] [facility] tPSA method. Measured values of a patient sample can vary depending on the testing procedure used. PSA values determined on patient samples by different testing procedures cannot be used interchangeably. If there is a change in PSA assays while monitoring therapy, sequential testing should be performed to confirm baseline values. Immunizations Immunization Date Immunization Notes Care Provider Fa cility 12-24-2020 Covid (Pfizer) [facility] 12-03-2020 Covid (Pfizer) [facility] Payers Date Payer Category Payer Medicare [id number] 2024 Self-pay [id number] Unknown [id number] Unknown [id number] Unknown [id number] Unknown [id number] Social History Date Type Detail Facility [facility]: [facility] Start: 1950 Sex Assigned At Male [facility] Start: 08-08-2016 [facility] Progress note 11-17-2021 Note Date & Type Note Facility 11-17-2021 Note HNO ID: [id number] Author: Rae Posadas APRN.HOME INSPECTOR Service: ? Author Type: Nurse Practitioner Type: Progress Notes Filed: 11/17/2021 9:46 AM Note Text: Subjective HPI Eleazar G Connie is a 71 year old male who [...] HERNIA LIH - PAST SURG[facility] ALLERGIES Patient has no known allergies. MEDICATIONS [...] Making Level: 4 - Moderate Rae Posadas APRN.[facility] Evaluation note Note Date & Type Note Facility Evaluation note No assessment information availa ble [facility] Work Phone: Reason for referral (narrative) Note Date & Type Note Facility Reason for referral (narrative) No reason for referral information available [facility] Work Phone: Summary Purpose Family History No Family History Records FoundNo Family History Records Found Advance Directives No Advanced Directives Records FoundNo Advanced Directives Records Found Chief Complaint and Reason for Visit Chief Complaint PSA Additional Source Comments (unrecognized sect ion and content) No Status Records FoundNo Status Records Found INFORMATION SOURCE (unrecogn ized section and content) DATE CREATED AUTHOR 12/18/2021 [facility] DATE CREATED AUTHOR AUTHOR'S ORGANIZ ATION 05/22/2025 [facility] Care Teams (unrecognized sec tion and [...] MD Attending Provider, Referr ing Provider Active Team Status: Active Member Role/Relationship Status Dates Dr. Janette Church MD Family Provider Active Charles Mayen AUTO CRANE DRIVER, AUTO CRANE DRIVER-C Primary Care Provider Active Team Status: Inactive Member Role/Relationship Status Dates Charles Mayen AUTO CRANE DRIVER, AUTO CRANE DRIVER-C Primary Care Provider Active Start: May 15, 2025 End: May 15, 2025 Charles Mayen AUTO CRANE DRIVER, AUTO CRANE DRIVER-C Attending Provider Active Start: May 15, 2025 End: May 15, 2025 Charles Mayen NP, AUTO CRANE DRIVER-C Referring Provider Active Start: May 15, 2025 End: May 15, 2025 Goals (unrecognized section and content) Goals may be documented in a n alternate sectionGoals may be documented in an alternate sectionGoals may be documented in an [...] BE BASED ON THE PRIMARY CLINICAL RECORDS. [facility] [employer] [facility]. provides no warranty or guarantee of the accuracy or completeness of information in this document.
== END | disposition home or self-care (01) ==
LOC: LAB 14:09
PROVIDERS: Referring Provider Urology; Visit Provider Urology
DX: Z01.812 Encounter for preprocedural laboratory examination (principal)
CPT/HCPCS: 36415; 80048; 85027

== ENCOUNTER 2025-08-10 16:02 | Observation (INO) | payer MEDICARE, OTHER, SELFPAY ==
--- NOTE | 2025-08-07 11:00 | EKG12_ITS ---
Test Reason : PRE OP Blood Pressure : */* mmHG Vent. Rate : 87 BPM Atrial Rate : 87 BPM P-R Int : 160 ms QRS Dur : 88 ms QT Int : 352 ms P-R-T Axes : 63 62 54 degrees QTcB Int : 423 ms Normal sinus rhythm Normal ECG Confirmed by Norberto Macedo ([id number]), newspaper editor DANNY LEACH ([id number]) on 08/08/2025 5:57:38 AM Referred By: Benjamin Colon Confirmed By: Norberto Macedo
[2025-08-10] VITALS (11 sets, daily range): BP systolic 133–167; BP diastolic 43–98; PULSE 78–95; RESP 12–16; TEMP 36.3–36.4; O2SAT 94–98; BMI 27.0; BMI 29.9
[2025-08-10] MEDS: Lactated Ringers 1,000 ML 15 ML IV (13:59)
--- NOTE | 2025-08-10 15:24 | PCM.PRE.AN2 ---
ASA Classification* ASA Classification ASA Classification: 2 Assessment & Plan Anesthesia* Anesthesia Assessment Anesthesia Assessment: Discussed sedation and/or anesthesia options, risks, benefits, and alternatives with patient/parents/legal guardian/POA. Questions invited. The patient/parents/legal guardian/POA seems to understand and agrees to proceed with anesthesia plan. Reviewed the physical assessment, medical history, allergy history and patient home medications list prior to surgery/procedure/anesthetic and documented any changes. Performed airway and anesthesia risk assessments. Anesthesia Type Anesthesia Type: General History Source History Obtained from:: Patient and Chart Anesthesia Focused Assessment* Temperature: 97.6 F Pulse Rate: 95 Blood Pressure: 145/43 Respiratory Rate: 16 Pulse Ox: 96 Oxygen Delivery Method: Room Air Airway Assessment Mouth opens: >3 cm Mallampati Score: I Teeth Condition: Intact Neck Range of motion (ROM): Full ROM Labs Anesthesia Preop lab: CBC WBC, (4.4-11.0) 10.1 K/mm3 07/31/25, 14:11 RBC, (4.6-6.2) 4.77 M/mm3 07/31/25, 14:11 Hgb, (13.0-16.5) 14.1 g/dL 07/31/25, 14:11 Hct, (40-54) 41.7 % 07/31/25, 14:11 Plt Count, (150-450) 269 K/mm3 07/31/25, 14:11 CHEMISTRY Potassium, (3.3-5.1) 4.1 mmol/L 07/31/25, 14:11 Sodium, (133-145) 140 mmol/L 07/31/25, 14:11 BUN, (4-19) 18 mg/dL 07/31/25, 14:11 Creatinine, (0.70-1.20) 1.07 mg/dL 07/31/25, 14:11 Glucose, (70-99) 92 mg/dL 07/31/25, 14:11 TSH, (0.358-3.740) 2.990 uIU/mL 11/07/24, 15:25 COAG Pre-Assessment Diagnosis/Proposed Procedure Planned Operative Procedure(s): TURP Anesthesia History Anesthesia History - enterprise analyst: Anesthesia History - enterprise analyst Hx Hospitalization No 08/03/25 15:05 Any Problems With Anesthesia No 08/03/25 15:05 Cholinesterase deficiency No 08/03/25 15:05 You/Your Family Experience No 08/03/25 15:05 fever (hyperthermia) with Relationship Recent Exposure to Contagious No 08/10/25 13:53 Disease Does patient have nerve No 08/03/25 15:05 stimulator Patient instructed to have device shut off --Does patient have Pacemaker No 08/10/25 13:53 or ICD? When Was Last Pacemaker Check QUESTION #4 FULL TEXT: You/Your Family Experience fever (hyperthermia) with Anesthesia Last Oral Intake Last Oral intake: Last Oral Intake NPO since 21:00 08/10/25 13:53 Meds taken in AM with sips of No 08/10/25 13:53 water? Meds patient instructed to take am of surgery PONV PONV - enterprise analyst: PONV - enterprise analyst Female No 08/03/25 15:05 HX of Motion Sickness No 08/03/25 15:05 HX of N/V After Surgery No 08/03/25 15:05 Non-Smoker Yes 08/03/25 15:05 Duration of Surgery greater Yes 08/03/25 15:05 than 60 minutes Number of Risk Factors 2 08/03/25 15:05 PONV Score Moderate Risk 08/03/25 15:05 Height & Weight Height & Weight: Anesthesia: Height & Weight Height 6 ft 1 in 08/10/25 13:53 Weight: 93 kg 08/10/25 13:53 Body Mass Index (BMI) 27.0 08/10/25 13:53 Respiratory Assessment Respiratory Assessment - enterprise analyst: Respiratory Tract Infection Hx - enterprise analyst Hx Respiratory Tract Infection No 08/03/25 15:05 STOP Sleep Apnea STOP Sleep Apnea - enterprise analyst: STOP Sleep Apnea - enterprise analyst Hx Hypertension Yes: CONTROLLED WITH MED 08/03/25 15:05 Hx Sleep Apnea No 08/03/25 15:05 CPAP BIPAP Do you snore loudly (louder No 08/03/25 15:05 than talking or can be heard Do you often feel tired/ No 08/03/25 15:05 fatigued/ sleepy during daytime? Has anyone observed you stop No 08/03/25 15:05 breathing during sleep? STOP Results Negative 08/03/25 15:05 QUESTION #5 FULL TEXT : Do you snore loudly (louder than talking or can be heard through closed doors)? Tobacco Use History Tobacco Use History - enterprise analyst: Tobacco Use History - enterprise analyst Tobacco Use Smoking Status Never smoker 08/03/25 15:05 Hx Tobacco Use No 08/03/25 15:05 Years Smoking Packs Smoked per Day Smoking Cessation Date was within the last 15 years Hx Smoking Cessation Date Hx Smoking Cessation Counseling Hematologic Medial History Hematologic Hx - enterprise analyst: Hematologic Medical Hx - social media content manager Hx of Blood Transfusion No 08/03/25 15:05 Hx of Transfusion in last 3 No 08/03/25 15:05 Months Date of Last Transfusion (if within last 3 months) Ever experience any problems No 08/03/25 15:05 with transfusion(s)? Specify any problems Hx of Preganancy in last 3 N/A 08/03/25 15:05 Months Nurse Filling Out Transfusion DSCHRIBER 08/03/25 15:05 & Questions: Date: 08/03/25 08/03/25 15:05 Time: 15:06 08/03/25 15:05 Patient unable to answer at this time (ie. confused, unrespo /Reproduction History /Reproductive History - enterprise analyst: /Reproductive Hx- enterprise analyst Hx Now No 08/03/25 15:05 Gestational Age (in weeks): EDC: Hx Hx Para Hx Section SAB No 08/03/25 15:05 Does the father of the baby or his family experience fever w Father of the baby Malignant Hypertension history comment Active Medications Active Medications: Current Medications Generic Name Dose Route Start Last Admin Trade Name Freq PRN Reason Stop Dose Admin Lactated Ringer's 1,000 mls @ 15 mls/hr 08/10/25 13:30 08/10/25 13:59 IV 15 mls/hr .Q48H PER Administration PFSH Medical History Wears glasses Prostate disease Non-smoker Hypertension Home Medications ?Medication ?Instructions ?Recorded ?Last Taken ?Type doxazosin 1 mg tablet 1 mg PO QHS 08/08/16 08/09/25 History sildenafil (pulm.hypertension) 20 20 mg PO QHS 08/08/16 08/09/25 History mg tablet amlodipine 5 mg tablet 5 mg PO QHS 08/03/25 08/09/25 History atorvastatin 20 mg tablet 20 mg PO QHS 08/03/25 08/09/25 History tamsulosin 0.4 mg capsule 0.4 mg PO BID 08/03/25 08/09/25 History Allergy/AdvReac Type Severity Reaction Status Date / Time No Known Allergies Allergy Verified 08/03/25 15:01 Surgical History Hx of left knee surgery Hx of colonoscopy History of prostate surgery Hx of left cataract extraction Hx of right cataract extraction Hx of detached retina repair Hx of detached retina repair Social History Smoking Status: Never smoker Review of Systems (Anesthesia) ROS Narrative System reviewed and no additional complaints, except as documented.
--- OUTSIDE RECORDS SUMMARY | 2025-08-10 15:33 | XMS RPT_ITS | CCD ---
Author Organization [facility] Care Team Providers Care Register In [place] Name Role Phone McMorrow DIGITAL CONTENT SPECIALIST-C, Charles Primary Care Provider McMorrow DIGITAL CONTENT SPECIALIST-C, Charles Attending Provider [phone] McMorrow DIGITAL CONTENT SPECIALIST-C, Charles Referring Provider McMorrow DIGITAL CONTENT SPECIALIST, Charles Primary Care Unavailable McMorrow DIGITAL CONTENT SPECIALIST, Cahrles Referring Unavailable McMorrow DIGITAL CONTENT SPECIALIST, Charles Attending Unavailable McMorrow DIGITAL CONTENT SPECIALIST, Charles Primary Care Unavailable DarleneBenjamin jansen Referring Unavailable DarleneBenjamin Attending Unavailable McMorrow DIGITAL CONTENT SPECIALIST, Charles Primary Care Unavailable DarleneBenjamin Referring Unavailable DarleneBenjamin Attending Unavailable Janette Church S Referring Unavailable DonnallJanette garcia S Attending Unavailable Janette Church S Primary Care Unavailable Medications Current Medications Medication [...] Test Name Value Interpretation Reference Range Facility 12 Lead EKGon 08-07-2025 12 Lead EKG [facility] [address] [place] [address] 12 Lead EKG 08/07/25 1103 MR#: [id number] Acct: [id number] Name: ELEAZAR ROSALES GENE Rep #: [id number] : 1950 75 From: Norberto Macedo MD Attending Dr: Dr. Benjamin Colon MD Status: PRE [facility] Ordering Dr: Benjamin Colon MD Date: 08/07/25 Location: [facility] Sex: M C Admitted: Test Reason : PRE OP Blood Pressure : */* mmHG Vent. Rate : 87 BPM Atrial Rate : 87 BPM P-R Int : 160 ms QRS Dur : 88 ms QT Int : 352 ms P-R-T Axes : 63 62 54 degrees QTcB Int : 423 ms Normal sinus rhythm Normal ECG Confirmed by Norberto Macedo ([id number]), art editor DANNY LEACH ([id number]) on 08/08/2025 5:57:38 AM Referred By: Benjamin Colon Confirmed By: Norberto Macedo 08/08/25 0557 Date Norberto Macedo MD CC: Charles OSEGUERA McMorrow; Dr. Benjamin Colon MD Signed Normal [facility] Basic Metabolic Profile (BMP )on 07-31-2025 BUN/CRE 16.6 RATIO Normal 10-20 [facility] Comment on above: Performed By: #### L 500.2500, L100.0500 #### [facility] [address] [place], [address] Calcium [Mass/Vol] 9.1 mg/dL Normal 7.6-11.0 [facility] Comment on above: Performed By: #### L 500.2500, L100.0500 #### [facility] [address] [place], [address] Chloride [Moles/Vol] 105 mmol/L Normal 98-108 [facility] Comment on above: Performed By: #### L 500.2500, L100.0500 #### [facility] [address] [place], [address] CO2 [Moles/Vol] 25.5 mmol/L Normal 21.0-32.0 [facility] Comment on above: Performed By: #### L 500.2500, L100.0500 #### [facility] [address] [place], [address] Creatinine [Mass/Vol] 1.07 mg/dL Normal 0.70-1.20 [facility] Comment on above: Performed By: #### L 500.2500, L100.0500 #### [facility] [address] [place], [address] GAP 9 Normal 5-15 [facility] Comment on above: Performed By: #### L 500.2500, L100.0500 #### [facility] [address] [place], [address] GFR/1.73 sq M.predicted among non-blacks MDRD (S/P/Bld) [Vol rate/Area] 73 mL/min/{1.73_m2} Normal >60 [facility] Comment on above: Result Comment: mL/m in/1.73m2 CKD-EPI Creatinine Equation (2020) Performed By: #### L 500.2500, L100.0500 #### [facility] [address] [place], [address] Glucose [Mass/Vol] 92 mg/dL Normal 70-99 [facility] Comment on above: Performed By: #### L 500.2500, L100.0500 #### [facility] [address] [place], [address] Potassium [Moles/Vol] 4.1 mmol/L Normal 3.3-5.1 [facility] Comment on above: Performed By: #### L 500.2500, L100.0500 #### [facility] [address] [place], [address] Sodium [Moles/Vol] 140 mmol/L Normal 133-145 [facility] Comment on above: Performed By: #### L 500.2500, L100.0500 #### [facility] [address] [place], [address] Urea nitrogen [Mass/Vol] 18 mg/dL Normal 4-19 [facility] Comment on above: Performed By: #### L 500.2500, L100.0500 #### [facility] [address] [place], [address] CBC-Complete Blood Cnt No Di ffon 07-31-2025 Erythrocyte distribution width (RBC) [Ratio] 12.8 % Normal 11.6-14.6 [facility] Comment on above: Performed By: #### L 500.2500, L100.0500 #### [facility] [address] [place], [address] Hematocrit (Bld) [Volume fraction] 41.7 % Normal 40-54 [facility] Comment on above: Performed By: #### L 500.2500, L100.0500 #### [facility] [address] [place], [address] Hemoglobin (Bld) [Mass/Vol] 14.1 g/dL Normal 13.0-16.5 [facility] Comment on above: Performed By: #### L 500.2500, L100.0500 #### [facility] [address] [place], [address] MCH (RBC) [Entitic mass] 29.6 pg Normal 27.0-32.0 [facility] Comment on above: Performed By: #### L 500.2500, L100.0500 #### [facility] [address] [place], [address] MCHC (RBC) [Mass/Vol] 33.8 g/dL Normal 32-36 [facility] Comment on above: Performed By: #### L 500.2500, L100.0500 #### [facility] [address] [place], [address] MCV (RBC) [Entitic vol] 87.4 fL Normal 80-94 [facility] Comment on above: Performed By: #### L 500.2500, L100.0500 #### [facility] [address] [place], [address] Platelet mean volume (Bld) [Entitic vol] 8.3 fL Normal 6.2-12.0 [facility] Comment on above: Performed By: #### L 500.2500, L100.0500 #### [facility] [address] [place], [address] Platelets (Bld) [#/Vol] 269 10*3/uL Normal 150-450 [facility] Comment on above: Performed By: #### L 500.2500, L100.0500 #### [facility] [address] [place], [address] RBC (Bld) [#/Vol] 4.77 10*6/uL Normal 4.6-6.2 [facility] Comment on above: Performed By: #### L 500.2500, L100.0500 #### [facility] [address] [place], [address] RDW SD 40.8 fl Normal 35.1-43.9 [facility] Comment on above: Performed By: #### L 500.2500, L100.0500 #### [facility] [address] [place], [address] WBC (Bld) [#/Vol] 10.1 10*3/uL Normal 4.4-11.0 [facility] Comment on above: Performed By: #### L 500.2500, L100.0500 #### [facility] [address] [place], [address] PSA,Total - Annual Screenon 05-15-2025 PSA,TOT SCREEN 5.56 ng/mL High 0.02-4.00 [facility] Comment on above: Order Comment: Order [...] values. Performed By: #### L 501.9910 #### [facility] [address], [address] AST(SGOT)on 11-08-2024 AST [Catalytic activity/Vol] 27 U/L Normal 15-37 [facility] Comment on above: Performed By: #### L 501.9520, L501.4405, L500.2500, L501.4100, L500.4100 #### [facility] [address], [address] Alanine Aminotransferas (SGP T)on 11-08-2024 ALT [Catalytic activity/Vol] 27 U/L Normal 16-61 [facility] Comment on above: Performed By: #### L 501.9520, L501.4405, L500.2500, L501.4100, L500.4100 #### [facility] [address] [place], [address] Basic Metabolic Profile (BMP )on 11-08-2024 BUN/CRE 16.0 RATIO Normal 10-20 [facility] Comment on above: Performed By: #### L 501.9520, L501.4405, L500.2500, L501.4100, L500.4100 #### [facility] [address] [place], [address] CA,Total 9.0 mg/dL Normal 8.5-10.1 [facility] Comment on above: Performed By: #### L 501.9520, L501.4405, L500.2500, L501.4100, L500.4100 #### [facility] [address] [place], [address] Chloride [Moles/Vol] 104 mmol/L Normal 98-107 [facility] Comment on above: Performed By: #### L 501.9520, L501.4405, L500.2500, L501.4100, L500.4100 #### [facility] [address] [place], [address] CO2 [Moles/Vol] 27.0 mmol/L Normal 21.0-32.0 [facility] Comment on above: Performed By: #### L 501.9520, L501.4405, L500.2500, L501.4100, L500.4100 #### [facility] [address] [place], [address] Creatinine [Mass/Vol] 1.06 mg/dL Normal 0.70-1.30 [facility] Comment on above: Result Comment: The validity of the calculated GFR GFRAA in patients over 70 years has not been determined. Clinical correlation is essential. Performed By: #### L 501.9520, L501.4405, L500.2500, L501.4100, L500.4100 #### [facility] [address] [place], [address] EST GFR - AA 88 mL/min Normal >60 [facility] Comment on above: Result Comment: Afri can Salvadorean GFR Calc Performed By: #### L 501.9520, L501.4405, L500.2500, L501.4100, L500.4100 #### [facility] [address] [place], [address] GAP 8 Normal 5-15 [facility] Comment on above: Performed By: #### L 501.9520, L501.4405, L500.2500, L501.4100, L500.4100 #### [facility] [address] [place], [address] GFR/1.73 sq M.predicted among non-blacks MDRD (S/P/Bld) [Vol rate/Area] 73 mL/min/{1.73_m2} Normal >60 [facility] Comment on above: Result Comment: Non- GFR Calc Performed By: #### L 501.9520, L501.4405, L500.2500, L501.4100, L500.4100 #### [facility] [address] [place], [address] Glucose [Mass/Vol] 83 mg/dL Normal 74-106 [facility] Comment on above: Performed By: #### L 501.9520, L501.4405, L500.2500, L501.4100, L500.4100 #### [facility] [address] [place], [address] Potassium [Moles/Vol] 3.7 mmol/L Normal 3.5-5.1 [facility] Comment on above: Performed By: #### L 501.9520, L501.4405, L500.2500, L501.4100, L500.4100 #### [facility] [address] [place], [address] Sodium [Moles/Vol] 139 mmol/L Normal 136-145 [facility] Comment on above: Performed By: #### L 501.9520, L501.4405, L500.2500, L501.4100, L500.4100 #### [facility] [address] [place], [address] Urea nitrogen [Mass/Vol] 17 mg/dL Normal 7-18 [facility] Comment on above: Performed By: #### L 501.9520, L501.4405, L500.2500, L501.4100, L500.4100 #### [facility] [address] [place], [address] Lipid Profileon 11-08-2024 Cholesterol [Mass/Vol] 131 mg/dL Normal [address] [facility] Comment on above: Result Comment: <200 mg/dL Desirable 200-240 mg/dL Borderline >240 mg/dL High Risk Performed By: #### L 501.9520, L501.4405, L500.2500, L501.4100, L500.4100 #### [facility] [address] [place], [address] Cholesterol in HDL [Mass/Vol] 47 mg/dL Normal [facility] Comment on above: Result Comment: The drugs N-Acetylcysteine and Metamizole may falsely depress this assay. Reference Range HDL <40 mg/dL Low HDL Cholesterol HDL >or= 60 mg/dL High HDL Cholesterol Performed By: #### L 501.9520, L501.4405, L500.2500, L501.4100, L500.4100 #### [facility] [address] [place], [address] Cholesterol in LDL [Mass/Vol] 74 mg/dL Normal 0-130 [facility] Comment on above: Performed By: #### L 501.9520, L501.4405, L500.2500, L501.4100, L500.4100 #### [facility] [address] [place], [address] Cholesterol in VLDL [Mass/Vol] 10 mg/dL Normal 5-40 [facility] Comment on above: Performed By: #### L 501.9520, L501.4405, L500.2500, L501.4100, L500.4100 #### [facility] [address] [place], [place], [address] Triglyceride [Mass/Vol] 49 mg/dL Normal [facility] Comment on above: Result Comment: The drugs N-Acetylcysteine and Metamizole may falsely depress this assay. Serum Triglycerides Reference Interval Normal <150 mg/dL Borderline high 150 - 199 mg/dL High 200 - 499 mg/dL Very High > or = 500 mg/dL Performed By: #### L 501.9520, L501.4405, L500.2500, L501.4100, L500.4100 #### [facility] [address] [place], [place], [address] Thyroid Stim Hormone (TSH)on 11-08-2024 TSH 2.990 uIU/mL Normal 0.358-3.740 [facility] Comment on above: Performed By: #### L 501.9520, L501.4405, L500.2500, L501.4100, L500.4100 #### [facility] [address] [place], [place], [address] No Panel InformationOrdered By: Benjamin Colon on 11-04-2023 Percent Free Prostate Specific Ag 0.92 ng/mL N/A [facility] Comment on above: [place] ECLIA methodol ogy. Prostate Specific Ag, Ultra-Sensitv 5.280 ng/mL 0.000-4.000 [facility] Comment on above: [place] ECLIA methodol ogy.According to the [place] [employer], Serum PSAshould decrease and remain [...] Prostate Specific Antigen Screen 6.06 ng/mL 0.00-4.00 [facility] Comment on above: This test was perfor med using the TPSA assay method for theDimension chemistry system. Values obtained with differentassay methods cannot be used interchangably.When changing PSA assays in the course of monitoring apatient, additional sequential testing should be carriedout to confirm baseline values. Serum or plasma free prostat e specific antigen/total prostate specific antigen ratioOrdered By: Benjamin Colon on 11-04-2023 Free PSA/Total PSA [Mass fraction] 17.4 % . [facility] Comment on above: The table below [...] for any other population of men.Performed at: [facility] [id number] Director: Jimmy Dinero PhD, Phone: [phone] Basophil percentageOrdered B y: Janette Church on 10-01-2023 Chloride [Moles/Vol] 108 mmol/L 98-107 [facility] Cholesterol [Mass/Vol] 128 mg/dL <[address] [facility] Comment on above: <200 mg/dL Desirable 200-240 mg/dL Borderline >240 mg/dL High Risk Glucose [Mass/Vol] 93 mg/dL 74-106 [facility] Potassium [Moles/Vol] 4.1 mmol/L 3.5-5.1 [facility] Sodium [Moles/Vol] 139 mmol/L 136-145 [facility] Triglyceride [Mass/Vol] 80 mg/dL <199 [facility] Comment on above: The drugs N-Acetylcy steine and Metamizole may falsely depress this assay.Serum Triglycerides Reference Interval Normal <150 mg/dL Borderline high 150 - 199 mg/dL High 200 - 499 mg/dL Very High > or = 500 mg/dL Laboratory - Chemistry and C hemistry - challengeOrdered By: Janette Church on 10-01-2023 ALT [Catalytic activity/Vol] 27 U/L 16-61 [facility] CO2 [Moles/Vol] 28.0 mmol/L 21.0-32.0 [facility] Urea nitrogen/Creatinine [Mass ratio] 16.2 mg/mg 10-20 [facility] No Panel InformationOrdered By: Janette Church on 10-01-2023 Estimated GFR (MDRD) Amer 84 mL/min >60 [facility] Comment on above: GFR Calc Estimated GFR (MDRD) Non-Af Amer 69 mL/min >60 [facility] Comment on above: Non- GFR Calc Urine Microalbumin/Creatinin e Ratio 15.0 mg/g CRE <30 [facility] Serum or plasma calcium maximilian urement (mass/volume)Ordered By: Janette Church on 10-01-2023 Calcium [Mass/Vol] 9.3 mg/dL 8.5-10.1 [facility] Serum or plasma cholesterol in HDL measurement (mass/volume)Ordered By: Janette Church on 10-01-2023 Cholesterol in HDL [Mass/Vol] 44 mg/dL >40 [facility] Comment on above: The drugs N-Acetylcy steine and Metamizole may falsely depress this assay. Reference Range HDL <40 mg/dL Low HDL Cholesterol HDL >or= 60 mg/dL High HDL Cholesterol Serum or plasma cholesterol in VLDL measurement (mass/volume)Ordered By: Janette Church on 10-01-2023 Cholesterol in VLDL [Mass/Vol] 16 mg/dL 5-40 [facility] Serum or plasma creatinine m easurement (mass/volume)Ordered By: Janette Church on 10-01-2023 Creatinine [Mass/Vol] 1.11 mg/dL 0.70-1.30 [facility] Comment on above: The validity of the calculated GFR & GFRAA in patients over 70 years has not been determined. Clinical correlation is essential. Serum or plasma low density lipoprotein (LDL) cholesterol measurement (mass/volume)Ordered By: Janette Church on 10-01-2023 Cholesterol in LDL [Mass/Vol] 68 mg/dL 0-130 [facility] Serum or plasma urea nitroge n measurement (mass/volume)Ordered By: Janette Church on 10-01-2023 Urea nitrogen [Mass/Vol] 18 mg/dL 7-18 [facility] Thin prep Papanicolaou smear with manual screeningOrdered By: Janette Church on 10-01-2023 Thin prep Papanicolaou smear with manual screening 18 U/L 15-37 [facility] Thin prep Papanicolaou smear with manual screening 3 5-15 [facility] Thin prep Papanicolaou smear with manual screening 44.0 mg/L NO RANGE EST. [facility] Urine creatinine measurement (mass/volume)Ordered By: Janette Church on 10-01-2023 Creatinine (U) [Mass/Vol] 294.00 mg/dL NO RANGE EST. [facility] CNOVon 11-17-2021 CNOV Office Visit (UCWSTR ) -------- ELEAZAR ROSALES ([id number]) 1950 M Date Time Provider Department 11/17/21 9:30 AM RAE POSADAS During your visit today, we recorded the [...] Sinusitis Patient Education What is Sinusitis? Sinusitis [ytcp-wqr-bphx-tis] is inflammation of the sinuses or swelling [...] help. You may be instructed to take fojf-irz-pqeozjo medications for symptoms. including fever reducers acetaminophen or ibuprofen, nasal saline spray, cough and cold preparations and decongestants as prescribed by the physician, nurse practitioner or physician psychiatric technician assistant. Self-Care and Prevention: Rest Fluids for hydration Good hand washing Humidifier Avoid smoking and exposure to second hand smoke Avoid sick contacts Rae Posadas APRN.CNP 11/17/2021 9:46 AM Signed Subjective HPI Eleazar [...] Problem Relatio (more content not included)... Normal [facility] Encounters Encounter Date Encounter Type Care Provider Facility Start: 08-10-2025 [facility] DIGITAL CONTENT SPECIALIST Facil ity:[facility] Start: 07-31-2025 Encounter for preprocedural laboratory examination Benjamin Colon [facility] Start: 07-31-2025 [facility] Charles Freeman [facility] DIGITAL CONTENT SPECIALIST Facil ity:[facility] Start: 05-15-2025 End: 05-15-2025 [facility] DIGITAL CONTENT SPECIALIST-C Work Phone: -Laboratory [facility] Start: 05-15-2025 End: 05-15-2025 Patient encounter procedure Charles Mayen DIGITAL CONTENT SPECIALIST-C -Laboratory [facility] Start: 05-15-2025 End: 05-15-2025 ambulatory Charles Mayen DIGITAL CONTENT SPECIALIST Facility:[facility] Start: 11-07-2024 End: 11-07-2024 ambulatory Janette Church Facility:[facility] Start: 11-04-2023 End: 11-04-[address] [facility] Work Phone: Start: 11-04-2023 End: 11-04-[address] [facility] Work Phone: Start: 10-01-2023 End: 10-01-[address] [facility] Work Phone: Start: 10-01-2023 End: 10-01-[address] [facility], [facility] Procedures Date Procedure Procedure Detail Performing Clinician Start: 05-15-2025 Prostate specific an tigen measurement Charles Magaña DIGITAL CONTENT SPECIALIST-C Work Phone: Comment on above: This test [...] Immunizations Immunization Date Immunization Notes Care Provider Estrella powers 12-24-2020 Covid (Pfizer) [facility] 12-03-2020 Covid (Pfizer) [facility] Payers Date Payer Category Payer Medicare [id number] 2024 Self-pay [id number] 2024 Unknown [id number] Unknown [id number] Unknown [id number] [id number] [id number] Unknown [id number] 2.16.8 [id number] Unknown [id number] 2.16.8 [id number] Unknown [id number] 2.16.8 [id number] Social History Date Type Detail Facility Start: 08-08-2016 Tobacco smoking stat [facility] Unknown if ever smoked [facility] Start: 1950 Sex Assigned At Male [facility] Start: 08[facility]08[facility] Progress note 11-17-2021 Note Date & Type Note Facility 11-17-2021 Note HNO ID: [id number] Author: Rae Posadas APRN.BATTERY ASSEMBLER Service: ? Author Type: Nurse Practitioner Type: [...] HERNIA LIH - PAST SURGICAL HISTORY OF [facility] ALLERGIES Patient has no known allergies. MEDICATIONS [...] Making Level: 4 - Moderate Rae Posadas APRN.CNP [facility] Evaluation note Note Date & Type Note Facility Evaluation note No assessment information availa ble [facility] Work Phone: Reason for referral (narrative) Note Date & Type Note Facility Reason for referral (narrative) No reason for referral information available [facility] Work Phone: Summary Purpose Family History No Family History Records FoundNo Family History Records Found Advance Directives No Advanced Directives Records FoundNo Advanced Directives Records Found Chief Complaint and Reason for Visit Chief Complaint PSA Additional Source Comments (unrecognized sect ion and content) No Status Records FoundNo Status Records Found INFORMATION SOURCE (unrecogn ized section and content) DATE CREATED AUTHOR 12/18/2021 [facility] DATE CREATED AUTHOR AUTHOR'S MATTY KELLY 08/08/2025 [facility] Care Teams (unrecognized sec tion and content) [...] Church MD Family Provider Active Charles Mayen DIGITAL CONTENT SPECIALIST, DIGITAL CONTENT SPECIALIST-C Primary Care Provider Active Team Status: Inactive Member Role/Relationship Status Dates Charles Mayen DIGITAL CONTENT SPECIALIST, DIGITAL CONTENT SPECIALIST-C Primary Care Provider Active Start: May 15, 2025 End: May 15, 2025 OUMAR Brooks NP Attending Provider Active Start: May 15, 2025 End: May 15, 2025 OUMAR Brooks NP Referring Provider Active Start: May 15, 2025 [...] BE BASED ON THE PRIMARY CLINICAL RECORDS. [facility] [employer] provides no warranty or guarantee of the accuracy or completeness of information in this document.
--- NOTE | 2025-08-10 16:05 | DCINST_ITS ---
Discharge Instructions DC O2, CPAP, BIPAP needs Home O2 Discharge instructions: No Dressing / Incision Discharge Activity: Return to Normal Activity and May Not Drive (while taking narcotic pain medications.) Dressing / Incision Call your doctor if you observe: Fever of 101 or Higher Follow Up Care Please Follow Up With: Benjamin Cloon MD When: Call [phone] for an appointment Test Results: Test results from this visit will be discussed in further detail at your follow- up appointment, if applicable. Discharge Plan Admission Primary Reason for Your Visit: turp Attending Provider: Benjamin Colon Primary Care Provider: Charles Mayen NP Instructions Patient Instructions: TURP, TURP Home Recovery, TURP Hospital Recovery Print Language: Macedonian Discharge Orders/Prescriptions Prescriptions: New ciprofloxacin HCl [Cipro] 500 mg tablet 500 mg PO BID Qty: 14 0RF Continued doxazosin 1 MG tablet 1 mg PO QHS sildenafil (pulm.hypertension) 20 MG tablet 20 mg PO QHS Patient Comments: atorvastatin 20 mg tablet 20 mg PO QHS amlodipine 5 mg tablet 5 mg PO QHS tamsulosin 0.4 mg capsule 0.4 mg PO BID Referrals / Follow Up: Benjamin Colon MD [Med Staff - Active Staff, Urology] Charles Mayen NP, CERTIFIED [employer] [Primary Care Provider, Family Practice] Disposition Disposition (needs filled in before D/C Order can be placed): Home, Self Care
[2025-08-10] MEDS: Lidocaine 1% (5 ml sdv) 5 ML Vial IV (16:08)
[2025-08-10] MEDS: Cefazolin 1 GM/5 ML Vial 2 GM IV (16:13)
[2025-08-10] MEDS: fentaNYL 100 MCG/2 ML Ampul 200 MCG IV (17:06)
--- NOTE | 2025-08-10 17:16 | OP.PCM_ITS ---
Operative Report (Standard) Operative Information Date of Procedure: 08/10/25 Pre-Operative Diagnosis: BPH with obstruction Post-Operative Diagnosis: The same Surgery/Procedure Performed: Transurethral section of prostate overhead crane technician: No Type of Anesthesia: General RN Documented Start/Stop Times: Operation Date: 08/10/25 15:30 Case Time Into Pre-Op 08/10/25 13:30 Anesthesia Start 08/10/25 16:03 Into Room 08/10/25 16:03 Procedure Start 08/10/25 16:13 Procedure End 08/10/25 17:11 Procedure Start Time: 16:13 Procedure Stop Time: 17:11 Select all DRAINS/GRAFTS/IMPLANTS that apply: Drains Drain details: 22 [place] three-way Gill Estimated Blood Loss: Minimal Specimen collected: No Description of surgery: In the preoperative setting I discussed with the patient how the surgery would be done with expect afterwards. We discussed how a prostate resection is done and we discussed the risk of the surgery including, bleeding, infection, retrograde ejaculation, changes with ejaculation or intercourse,. We discussed the possibility that the resection of the prostate may not alleviate his urinary symptoms. We discussed the small risk of developing scar tissue along the urethral channel and strictures. We also discussed the chance of the prostate could grow back and he may need further surgery or treatment in the future for prostate problems. Patient was taken back to the operating room, timeout procedure was performed, he was identified and marked and placed on the operating room table. He underwent general anesthesia. He was placed in dorsolithotomy position. Penis and testicles were prepped and draped in usual sterile fashion. Went into the bladder using the visual obturator with a resectoscope. Once inside the bladder identified the right and left ureteral orifice. I then identified the prostate and the anatomy of the prostate. I marked out the area of the sphincter and the verumontanum was identified. I then proceeded with the prostate resection first resected the median lobe. And then resected the right lobe of the prostate. Then to resect the left lobe of the prostate. I then resected the apical tissue of the prostate. This was a complete resection of all obstructive tissue to improve voiding and relieve obstruction. I then made sure that there was no injury to the sphincter or the verumontanum was still intact. At the end of the resection all the chips were Ellik out of the bladder. I then identified the left and right ureteral orifice and these were confirmed to be in good position and effluxing and not injured. The resectoscope was removed, a 22 [place] catheter was placed into the bladder on continuous irrigation. And the urine was fairly light pink color and draining normally. He was taken back to the PACU in good condition. CPT 43024 Surgical Findings: Prostate shaved open completely nice open flow sphincter intact Complications Complications: No Admit VTE Documentation VTE Present on Admission: No VTE Mechan Device Prophylaxis: SCD's VTE Pharm Prophylaxis ordered?: No
--- NOTE | 2025-08-10 17:30 | PCM.POST.ANE ---
Anesthesia: Postop Eval I Current Vital Signs Temperature: 97.5 F Pulse Rate: 92 Blood Pressure: 167/85 Respiratory Rate: 12 Pulse Ox: 94 Oxygen Delivery Method: Room Air Assessment Airway patent: Yes Spontaneous unlabored respirations: Yes Mental status: Awake and Calm nausea: No Vomiting: No Anesthesia Complication: No Fluid Hydration Crystalloid volume administer (ml): 1,100 Total IV fluid infused: 1,100 Progress Note Anesthesia document: Postop Eval 1 completed: Yes
--- OUTSIDE RECORDS SUMMARY | 2025-08-10 18:07 | XMS RPT_ITS | CCD ---
Author Organization [facility] Inform ion Partnership [facility] Care Team Providers Care Honeycomb Decapper Name Role Phone McMorrow READING INTERVENTIONIST-C, Charles Primary Care Provider McMorrow READING INTERVENTIONIST-C, Charles Attending Provider [phone] McMorrow READING INTERVENTIONIST-C, Charles Referring Provider McMorrow READING INTERVENTIONIST, Charles Primary Care Unavailable McMorrow READING INTERVENTIONIST, Charles Referring Unavailable McMorrow READING INTERVENTIONIST, Charles Attending Unavailable McMorrow READING INTERVENTIONIST, Charles Primary Care Unavailable DarleneBenjamin jansen Referring Unavailable DarleneBenjamin Attending Unavailable McMorrow READING INTERVENTIONIST, Charles Primary Care Unavailable DarleneBenjamin Referring Unavailable [...] 12 Lead EKGon 08-07-2025 12 Lead EKG [facility] Cardiovascular Services [address] [place] [address] 12 Lead EKG 08/07/25 1103 MR#: [id number] Acct: [id number] Name: ELEAZAR ROSALES GENE Rep #: [id number] : 1950 75 From: Norberto Macedo MD Attending Dr: Dr. Benjamin Colon MD Status: PRE [facility] [place]: Benjamin Colon MD Date: 08/07/25 [place] [facility] [place] Sex: M C Admitted: Test Reason : PRE OP Blood Pressure : */* mmHG Vent. Rate : 87 BPM Atrial Rate : 87 BPM P-R Int : 160 ms QRS Dur : 88 ms QT Int : 352 ms P-R-T Axes : 63 62 54 degrees QTcB Int : 423 ms Normal sinus rhythm Normal ECG Confirmed by Norberto Macedo ([id number]), editor sound DANNY LEACH ([id number]) on 08/08/2025 5:57:38 AM Referred By: Benjamin Colon Confirmed By: Norberto Macedo 08/08/25 0557 Date Norberto Macedo MD CC: Charles OSEGUERA McMorrow; Dr. Benjamin Colon MD Signed Normal [facility] Basic Metabolic Profile (BMP )on 07-31-2025 BUN/CRE 16.6 RATIO Normal 10-20 [facility] Comment on above: Performed By: #### L 500.2500, L100.0500 #### [facility] Laboratory [address] [place], [address] Calcium [Mass/Vol] 9.1 mg/dL Normal 7.6-11.0 [facility] Comment on above: Performed By: #### L 500.2500, L100.0500 #### [facility] Laboratory [address] [place], [address] Chloride [Moles/Vol] 105 mmol/L Normal 98-108 [facility] Comment on above: Performed By: #### L 500.2500, L100.0500 #### [facility] Laboratory [address] [place], [address] CO2 [Moles/Vol] 25.5 mmol/L Normal 21.0-32.0 [facility] Comment on above: Performed By: #### L 500.2500, L100.0500 #### [facility] Laboratory [address] [place], [address] Creatinine [Mass/Vol] 1.07 mg/dL Normal 0.70-1.20 [facility] Comment on above: Performed By: #### L 500.2500, L100.0500 #### [facility] Laboratory [address] [place], [address] GAP 9 Normal 5-15 [facility] Comment on above: Performed By: #### L 500.2500, L100.0500 #### [facility] Laboratory [address] [place], [address] GFR/1.73 sq M.predicted among non-blacks MDRD (S/P/Bld) [Vol rate/Area] 73 mL/min/{1.73_m2} Normal >60 [facility] Comment on above: Result Comment: mL/m in/1.73m2 CKD-EPI Creatinine Equation (2020) Performed By: #### L 500.2500, L100.0500 #### [facility] Laboratory [address] [place], [address] Glucose [Mass/Vol] 92 mg/dL Normal 70-99 [facility] Comment on above: Performed By: #### L 500.2500, L100.0500 #### [facility] Laboratory [address] [place], [address] Potassium [Moles/Vol] 4.1 mmol/L Normal 3.3-5.1 [facility] Comment on above: Performed By: #### L 500.2500, L100.0500 #### [facility] Laboratory [address] [place], [address] Sodium [Moles/Vol] 140 mmol/L Normal 133-145 [facility] Comment on above: Performed By: #### L 500.2500, L100.0500 #### [facility] Laboratory [address] [place], [address] Urea nitrogen [Mass/Vol] 18 mg/dL Normal 4-19 [facility] Comment on above: Performed By: #### L 500.2500, L100.0500 #### [facility] Laboratory [address] [place], [address] CBC-Complete Blood Cnt No Di ffon 07-31-2025 Erythrocyte distribution width (RBC) [Ratio] 12.8 % Normal 11.6-14.6 [facility] Comment on above: Performed By: #### L 500.2500, L100.0500 #### [facility] Laboratory [address] [place], [address] Hematocrit (Bld) [Volume fraction] 41.7 % Normal 40-54 [facility] Comment on above: Performed By: #### L 500.2500, L100.0500 #### [facility] Laboratory [address] [place], [address] Hemoglobin (Bld) [Mass/Vol] 14.1 g/dL Normal 13.0-16.5 [facility] Comment on above: Performed By: #### L 500.2500, L100.0500 #### [facility] Laboratory [address] [place], [address] MCH (RBC) [Entitic mass] 29.6 pg Normal 27.0-32.0 [facility] Comment on above: Performed By: #### L 500.2500, L100.0500 #### [facility] Laboratory [address] [place], [address] MCHC (RBC) [Mass/Vol] 33.8 g/dL Normal 32-36 [facility] Comment on above: Performed By: #### L 500.2500, L100.0500 #### [facility] Laboratory [address] [place], [address] MCV (RBC) [Entitic vol] 87.4 fL Normal 80-94 [facility] Comment on above: Performed By: #### L 500.2500, L100.0500 #### [facility] Laboratory [address] [place], [address] Platelet mean volume (Bld) [Entitic vol] 8.3 fL Normal 6.2-12.0 [facility] Comment on above: Performed By: #### L 500.2500, L100.0500 #### [facility] Laboratory [address] [place], [address] Platelets (Bld) [#/Vol] 269 10*3/uL Normal 150-450 [facility] Comment on above: Performed By: #### L 500.2500, L100.0500 #### [facility] Laboratory [address] [place], [address] RBC (Bld) [#/Vol] 4.77 10*6/uL Normal 4.6-6.2 [facility] Comment on above: Performed By: #### L 500.2500, L100.0500 #### [facility] Laboratory [address] [place], [address] RDW SD 40.8 fl Normal 35.1-43.9 [facility] Comment on above: Performed By: #### L 500.2500, L100.0500 #### [facility] Laboratory [address] [place], [address] WBC (Bld) [#/Vol] 10.1 10*3/uL Normal 4.4-11.0 [facility] Comment on above: Performed By: #### L 500.2500, L100.0500 #### [facility] Laboratory [address] [place], [address] PSA,Total - Annual Screenon 05-15-2025 PSA,TOT SCREEN 5.56 ng/mL High 0.02-4.00 [facility] Comment on above: Order Comment: Order Date: [...] values. Performed By: #### L 501.9910 #### [facility] Laboratory [address] [place], [address] AST(SGOT)on 11-08-2024 AST [Catalytic activity/Vol] 27 U/L Normal 15-37 [facility] Comment on above: Performed By: #### L 501.9520, L501.4405, L500.2500, L501.4100, L500.4100 #### [facility] Laboratory [address] [place], [address] Alanine Aminotransferas (SGP T)on 11-08-2024 ALT [Catalytic activity/Vol] 27 U/L Normal 16-61 [facility] Comment on above: Performed By: #### L 501.9520, L501.4405, L500.2500, L501.4100, L500.4100 #### [facility] Laboratory [address] [place], [address] Basic Metabolic Profile (BMP )on 11-08-2024 BUN/CRE 16.0 RATIO Normal 10-20 [facility] Comment on above: Performed By: #### L 501.9520, L501.4405, L500.2500, L501.4100, L500.4100 #### [facility] Laboratory [address] [place], [address] CA,Total 9.0 mg/dL Normal 8.5-10.1 [facility] Comment on above: Performed By: #### L 501.9520, L501.4405, L500.2500, L501.4100, L500.4100 #### [facility] Laboratory [address] [place], [address] Chloride [Moles/Vol] 104 mmol/L Normal 98-107 [facility] Comment on above: Performed By: #### L 501.9520, L501.4405, L500.2500, L501.4100, L500.4100 #### [facility] Laboratory [address] [place], [address] CO2 [Moles/Vol] 27.0 mmol/L Normal 21.0-32.0 [facility] Comment on above: Performed By: #### L 501.9520, L501.4405, L500.2500, L501.4100, L500.4100 #### [facility] Laboratory [address] [place], [address] Creatinine [Mass/Vol] 1.06 mg/dL Normal 0.70-1.30 [facility] Comment on above: Result Comment: The validity of the calculated GFR GFRAA in patients over 70 years has not been determined. Clinical correlation is essential. Performed By: #### L 501.9520, L501.4405, L500.2500, L501.4100, L500.4100 #### [facility] Laboratory [address] [place], [address] EST GFR - AA 88 mL/min Normal >60 [facility] Comment on above: Result Comment: Afri can E[place]re[place] GFR Calc Performed By: #### L 501.9520, L501.4405, L500.2500, L501.4100, L500.4100 #### [facility] Laboratory [address] [place], [address] GAP 8 Normal 5-15 [facility] Comment on above: Performed By: #### L 501.9520, L501.4405, L500.2500, L501.4100, L500.4100 #### [facility] Laboratory [address] [place], [address] GFR/1.73 sq M.predicted among non-blacks MDRD (S/P/Bld) [Vol rate/Area] 73 mL/min/{1.73_m2} Normal >60 [facility] Comment on above: Result Comment: Non- GFR Calc Performed By: #### L 501.9520, L501.4405, L500.2500, L501.4100, L500.4100 #### [facility] Laboratory [address] [place], [address] Glucose [Mass/Vol] 83 mg/dL Normal 74-106 [facility] Comment on above: Performed By: #### L 501.9520, L501.4405, L500.2500, L501.4100, L500.4100 #### [facility] Laboratory [address] [place], [address] Potassium [Moles/Vol] 3.7 mmol/L Normal 3.5-5.1 [facility] Comment on above: Performed By: #### L 501.9520, L501.4405, L500.2500, L501.4100, L500.4100 #### [facility] Laboratory [address] [place], [address] Sodium [Moles/Vol] 139 mmol/L Normal 136-145 [facility] Comment on above: Performed By: #### L 501.9520, L501.4405, L500.2500, L501.4100, L500.4100 #### [facility] Laboratory [address] [place], [address] Urea nitrogen [Mass/Vol] 17 mg/dL Normal 7-18 [facility] Comment on above: Performed By: #### L 501.9520, L501.4405, L500.2500, L501.4100, L500.4100 #### [facility] Laboratory [address] [place], [address] Lipid Profileon 11-08-2024 Cholesterol [Mass/Vol] 131 mg/dL Normal 200 [facility] Comment on above: Result Comment: <200 mg/dL Desirable 200-240 mg/dL Borderline >240 mg/dL High Risk Performed By: #### L 501.9520, L501.4405, L500.2500, L501.4100, L500.4100 #### [facility] Laboratory [address] [place], [address] Cholesterol in HDL [Mass/Vol] 47 mg/dL Normal [facility] Comment on above: Result Comment: The drugs N-Acetylcysteine and Metamizole may falsely depress this assay. Reference Range HDL <40 mg/dL Low HDL Cholesterol HDL >or= 60 mg/dL High HDL Cholesterol Performed By: #### L 501.9520, L501.4405, L500.2500, L501.4100, L500.4100 #### [facility] Laboratory [address] [place], [address] Cholesterol in LDL [Mass/Vol] 74 mg/dL Normal 0-130 [facility] Comment on above: Performed By: #### L 501.9520, L501.4405, L500.2500, L501.4100, L500.4100 #### [facility] Laboratory [address] [place], [address] Cholesterol in VLDL [Mass/Vol] 10 mg/dL Normal 5-40 [facility] Comment on above: Performed By: #### L 501.9520, L501.4405, L500.2500, L501.4100, L500.4100 #### [facility] Laboratory [address] [place], [place], [address] Triglyceride [Mass/Vol] 49 mg/dL Normal [facility] Comment on above: Result Comment: The drugs N-Acetylcysteine and Metamizole may falsely depress this assay. Serum Triglycerides Reference Interval Normal <150 mg/dL Borderline high 150 - 199 mg/dL High 200 - 499 mg/dL Very High > or = 500 mg/dL Performed By: #### L 501.9520, L501.4405, L500.2500, L501.4100, L500.4100 #### [facility] Laboratory [address] [place], [place], [address] Thyroid Stim Hormone (TSH)on 11-08-2024 TSH 2.990 uIU/mL Normal 0.358-3.740 [facility] Comment on above: Performed By: #### L 501.9520, L501.4405, L500.2500, L501.4100, L500.4100 #### [facility] Laboratory [address] [place], [place], [address] No Panel InformationOrdered By: Benjamin Colon on 11-04-2023 Percent Free Prostate Specific Ag 0.92 ng/mL N/A [facility] Comment on above: [place] ECLIA methodol ogy. Prostate Specific Ag, Ultra-Sensitv 5.280 ng/mL 0.000-4.000 [facility] Comment on above: [place] ECLIA methodol ogy.According to the [place] [employer], Serum PSAshould decrease and remain [...] Prostate Specific Antigen Screen 6.06 ng/mL 0.00-4.00 [facility] Comment on above: This test was perfor [...] PSA/Total PSA [Mass fraction] 17.4 % . [facility] Comment on above: The table below list [...] for any other population of men.Performed at: [facility] [id number] Director: Jimmy Dinero PhD, Phone: [phone] Basophil percentageOrdered B y: Janette Church on 10-01-2023 Chloride [Moles/Vol] 108 mmol/L 98-107 [facility] Cholesterol [Mass/Vol] 128 mg/dL <200 [facility] Comment on above: <200 mg/dL Desirable 200-240 mg/dL Borderline >240 mg/dL High Risk Glucose [Mass/Vol] 93 mg/dL 74-106 [facility] Potassium [Moles/Vol] 4.1 mmol/L 3.5-5.1 [facility] Sodium [Moles/Vol] 139 mmol/L 136-145 [facility] Triglyceride [Mass/Vol] 80 mg/dL <199 [facility] Comment on above: The drugs N-Acetylcy steine and Metamizole may falsely depress this assay.Serum Triglycerides Reference Interval Normal <150 mg/dL Borderline high 150 - 199 mg/dL High 200 - 499 mg/dL Very High > or = 500 mg/dL Laboratory - Chemistry and C hemistry - challengeOrdered By: Janette Church on 10-01-2023 ALT [Catalytic activity/Vol] 27 U/L 16-61 [facility] CO2 [Moles/Vol] 28.0 mmol/L 21.0-32.0 [facility] Urea nitrogen/Creatinine [Mass ratio] 16.2 mg/mg 10-20 [facility] No Panel InformationOrdered By: Janette Church on 10-01-2023 Estimated GFR (MDRD) Amer 84 mL/min >60 [facility] Comment on above: GFR Calc Estimated GFR (MDRD) Non-Af Amer 69 mL/min >60 [facility] Comment on above: Non- GFR Calc Urine Microalbumin/Creatinin e Ratio 15.0 mg/g CRE <30 [facility] Serum or plasma calcium maximilian urement (mass/volume)Ordered By: Janette Church on 10-01-2023 Calcium [Mass/Vol] 9.3 mg/dL 8.5-10.1 [facility] Serum or plasma cholesterol in HDL measurement (mass/volume)Ordered By: Janette Church on 10-01-2023 Cholesterol in HDL [Mass/Vol] 44 mg/dL >40 [facility] Comment on above: The drugs N-Acetylcy steine and Metamizole may falsely depress this assay. Reference Range HDL <40 mg/dL Low HDL Cholesterol HDL >or= 60 mg/dL High HDL Cholesterol Serum or plasma cholesterol in VLDL measurement (mass/volume)Ordered By: Janette Church on 10-01-2023 Cholesterol in VLDL [Mass/Vol] 16 mg/dL 5-40 [facility] Serum or plasma creatinine m easurement (mass/volume)Ordered By: Janette Church on 10-01-2023 Creatinine [Mass/Vol] 1.11 mg/dL 0.70-1.30 [facility] Comment on above: The validity of the calculated GFR & GFRAA in patients over 70 years has not been determined. Clinical correlation is essential. Serum or plasma low density lipoprotein (LDL) cholesterol measurement (mass/volume)Ordered By: Janette Church on 10-01-2023 Cholesterol in LDL [Mass/Vol] 68 mg/dL 0-130 [facility] Serum or plasma urea nitroge n measurement (mass/volume)Ordered By: Janette Church on 10-01-2023 Urea nitrogen [Mass/Vol] 18 mg/dL 7-18 [facility] Thin prep Papanicolaou smear with manual screeningOrdered By: Janette Church on 10-01-2023 Thin prep Papanicolaou smear with manual screening 18 U/L 15-37 [facility] Thin prep Papanicolaou smear with manual screening 3 5-15 [facility] Thin prep Papanicolaou smear with manual screening 44.0 mg/L NO RANGE EST. [facility] Urine creatinine measurement (mass/volume)Ordered By: Janette Church on 10-01-2023 Creatinine (U) [Mass/Vol] 294.00 mg/dL NO RANGE EST. [facility] CNOVon 11-17-2021 CNOV Office Visit (UCWSTR ) -------- ELEAZAR ROSALES ([id number]) 1950 M Date Time Provider Department 11/17/21 [...] Sinusitis Patient Education What is Sinusitis? Sinusitis [nrad-jpm-ucco-tis] is inflammation of the sinuses or swelling [...] help. You may be instructed to take afkg-doj-zycwoik medications for symptoms. including fever reducers acetaminophen or ibuprofen, nasal saline spray, cough and cold preparations and decongestants as prescribed by the physician, nurse practitioner or physician physical therapy assistant. Self-Care and Prevention: Rest Fluids for [...] Problem Relatio (more content not included)... Normal [facility] Encounters Encounter Date Encounter Type Care Provider Facility Start: 08-10-2025 [facility] READING INTERVENTIONIST Facil ity:[facility] Start: 07-31-2025 Encounter for preprocedural laboratory examination Benjamin Colon [facility] Start: 07-31-2025 [facility] READING INTERVENTIONIST Facil ity:[facility] Start: 05-15-2025 End: 05-15-2025 [facility] READING INTERVENTIONIST-C Work Phone: -Laboratory [facility] Start: 05-15-2025 End: 05-15-2025 Patient encounter procedure Charles Mayen READING INTERVENTIONIST-C -Laboratory [facility] Start: 05-15-2025 End: 05-15-2025 ambulatory Charles Mayen READING INTERVENTIONIST Facility:[facility] Start: 11-07-2024 End: 11-07-2024 ambulatory Janette Church Facility:[facility] Start: 11-04-2023 End: 11-04-2023 ambulatory [facility] Work Phone: Start: 11-04-2023 End: 11-04-2023 Patient encounter procedure [facility]-Laboratory Work Phone: Start: 10-01-2023 End: 10-01-2023 ambulatory [facility] Work Phone: Start: 10-01-2023 End: 10-01-2023 Patient encounter procedure [facility]-Laboratory, [facility] Procedures Date Procedure Procedure Detail Performing Clinician Start: 05-15-2025 Prostate specific an tigen measurement Charles Magaña READING INTERVENTIONIST-C Work Phone: Comment on above: This test [...] Care Provider Estrella powers 12-24-2020 Covid (Pfizer) [facility] 12-03-2020 Covid (Pfizer) [facility] Payers Date Payer Category Payer Medicare [id number] 2024 Self-pay [id number] 2024 Unknown [id number] Unknown [id number] Unknown [id number] 2.16.8 [id number] Unknown [id number] 2.16.8 [id number] Unknown [id number] 2.16.8 [id number] Unknown [id number] 2.16.8 [id number] Social History Date Type Detail Facility Start: 08-08-[address] [facility] Unknown if ever smoked [facility] Start: 1950 Sex Assigned At Male [facility] Start: 08[facility]08-[facility] Progress note 11-17-2021 Note Date & Type Note Facility 11-17-2021 Note HNO ID: [id number] Author: Rae Posadas APRN.SENIOR WEB ANALYST Service: ? Author Type: Nurse Practitioner Type: [...] HERNIA LIH - PAST SURGICAL HISTORY OF [facility] ALLERGIES Patient has no known allergies. MEDICATIONS [...] Level: 4 - Moderate Rae Posadas APRN.CNP [facility] Evaluation note Note Date & Type Note Facility Evaluation note No assessment information availa ble [facility] Work Phone: Reason for referral (narrative) Note Date & Type Note Facility Reason for referral (narrative) No reason for referral information available [facility] Work Phone: Summary Purpose Family History No Family History Records FoundNo Family History Records Found Advance Directives No Advanced Directives Records FoundNo Advanced Directives Records Found Chief Complaint and Reason for Visit Chief Complaint PSA Additional Source Comments (unrecognized sect ion and content) No Status Records FoundNo Status Records Found INFORMATION SOURCE (unrecogn ized section and content) DATE CREATED AUTHOR 12/18/2021 [facility] DATE CREATED AUTHOR AUTHOR'S MATTY KELLY 08/08/2025 [facility] Care Teams (unrecognized sec tion and content) [...] Church MD Family Provider Active Charles Mayen READING INTERVENTIONIST, READING INTERVENTIONIST-C Primary Care Provider Active Team Status: Inactive Member Role/Relationship Status Dates Charles Mayen READING INTERVENTIONIST, READING INTERVENTIONIST-C Primary Care Provider Active Start: May 15, [...] BE BASED ON THE PRIMARY CLINICAL RECORDS. [facility] [employer] provides no warranty or guarantee of the accuracy or completeness of information in this document.
[2025-08-10] MEDS: 0.9% Normal Saline (1000mL) 1,000 ML 125 ML IV (18:45)
[2025-08-11 00:19] VITALS: PULSE 16
--- NOTE | 2025-08-11 01:28 | POSTOPAN2_ITS ---
Anesthesia Postop Eval I Sum Postop Eval Completion status Anesthesia document: Postop Eval 1 completed: Yes Anesthesia Postop Eval I Summary Anesthesia Postop Eval I Summary: Anesthesia Postop Eval I: Assessment Summary Airway patent Yes 08/10/25 17:30 CERTIFIED LEGAL INVESTIGATOR.SHOF Spontaneous unlabored Yes 08/10/25 17:30 CERTIFIED LEGAL INVESTIGATOR.SHOF respirations Mental status Awake,Calm 08/10/25 17:30 CERTIFIED LEGAL INVESTIGATOR.SHOF nausea No 08/10/25 17:30 CERTIFIED LEGAL INVESTIGATOR.SHOF Vomiting No 08/10/25 17:30 CERTIFIED LEGAL INVESTIGATOR.SHOF Anesthesia Postop Eval I: Fluid Summary Crystalloid volume administer 1,100 08/10/25 17:30 CERTIFIED LEGAL INVESTIGATOR.SHOF (ml) Colloids volume administered ( ml) Blood Product volume administered (ml) Total IV fluid infused 1,100 08/10/25 17:30 CERTIFIED LEGAL INVESTIGATOR.SHOF Anesthesia Postop Eval I: Summary Notes Anesthesia Complication No 08/10/25 17:30 CERTIFIED LEGAL INVESTIGATOR.SHOF Anesthesia Complication Comment: Post-operative progress note Anesthesia: Postop Eval II Evaluation Mental status: Awake and Calm Pain Level: 1 nausea: No Vomiting: No Complications Anesthesia Complication: No
--- NOTE | 2025-08-11 01:28 | PCM.POSTANE2 ---
Anesthesia Postop Eval I Sum Postop Eval Completion status Anesthesia document: Postop Eval 1 completed: Yes Anesthesia Postop Eval I Summary Anesthesia Postop Eval I Summary: Anesthesia Postop Eval I: Assessment Summary Airway patent Yes 08/10/25 17:30 COMMUTATOR [email or web address] Spontaneous unlabored Yes 08/10/25 17:30 COMMUTATOR PRESSER.SHOF respirations Mental status Awake,Calm 08/10/25 17:30 COMMUTATOR [email or web address].SHOF nausea No 08/10/25 17:30 COMMUTATOR [email or web address].SHOF Vomiting No 08/10/25 17:30 COMMUTATOR [email or web address].SHOF Anesthesia Postop Eval I: Fluid Summary Crystalloid volume administer 1,100 08/10/25 17:30 COMMUTATOR [email or web address].SHOF (ml) Colloids volume administered ( ml) Blood Product volume administered (ml) Total IV fluid infused 1,100 08/10/25 17:30 COMMUTATOR [email or web address].SHOF Anesthesia Postop Eval I: Summary Notes Anesthesia Complication No 08/10/25 17:30 COMMUTATOR [email or web address].SHOF Anesthesia Complication Comment: Post-operative progress note Anesthesia: Postop Eval II Evaluation Mental status: Awake and Calm Pain Level: 1 nausea: No Vomiting: No Complications Anesthesia Complication: No
[2025-08-11 02:19] VITALS: BP 115/62; PULSE 95; RESP 16; TEMP 36.5; O2SAT 96
[2025-08-11] MEDS: 0.9% Normal Saline (1000mL) 1,000 ML 125 ML IV (03:58)
[2025-08-11 06:19] VITALS: BP 116/70; PULSE 77; RESP 16; TEMP 36.4; O2SAT 94
[2025-08-11 08:17] VITALS: BP 117/69; PULSE 79; RESP 17; TEMP 36.7; O2SAT 95
[2025-08-11] MEDS: FLU VACCINE HIGH DOSE 25-26(65YR UP) 180 MCG/0.5 ML SYRINGE IM (08:23)
--- NOTE | 2025-08-11 08:46 | PCM.PN.GU ---
Subjective Subjective Status post TURP doing well Gill catheter removed he can go home after voids Objective Data Objective Data Vital Signs: Vital Signs Temp Pulse Resp BP Pulse Ox O2 Del Method 98.1 F 79 17 117/69 95 Room Air 08/11/25 08:17 08/11/25 08:17 08/11/25 08:17 08/11/25 08:17 08/11/25 08:17 08/11/25 08:17 Oxygen Delivery Method Room Air Weight: 103 kg Body Mass Index (BMI) 29.9 Intake & Output: Intake and Output for Last 24 Hours 08/09/25 08/10/25 08/11/25 23:59 23:59 23:59 Intake Total 1000 / 1200 1400 / 1400 Output Total 6800 / 6800 Balance 975 / 1175 -5400 / -5400
[2025-08-11 12:15] VITALS: BP 137/76; PULSE 88; RESP 18; TEMP 36.4; O2SAT 97
== END 2025-08-11 12:53 | disposition home or self-care (01) ==
LOC: SDC 17:15 → MS3 17:15
PROVIDERS: Admitting Provider Urology; Referring Provider Urology; Visit Provider Urology
PROC: (CPT 52601; principal; 2025-08-10 15:20)
DX: N40.1 Benign prostatic hyperplasia with lower urinary tract symptoms (principal); N13.8 Other obstructive and reflux uropathy; R39.11 Hesitancy of micturition; R35.1 Nocturia; I10 Essential (primary) hypertension; Z79.899 Other long term (current) drug therapy
CPT/HCPCS: 52601; 00914; 93005; 96361; 96365; 96366; 99221; G0378; J0744